=== PATIENT | female | born 1940 | race Caucasian/White ===

== ENCOUNTER 2020-05-05 14:54 | Inpatient (IN) | payer MEDICARE, SELFPAY ==
--- NOTE | ~2020-05-05 | US_ITS ---
EXAMINATION: US venous doppler LE EXAM DATE: 05/06/2020 12:41 INDICATION: bilateral leg edema. TECHNIQUE: Multiple grayscale, color flow and Doppler images of the lower extremity deep venous syste ms bilaterally were obtained and reviewed. There is no prior study for comparison. FINDINGS: Right side: The right common femoral, femoral and profunda veins demonstrate normal color flow, respi ratory variation, augmentation and compressibility. Compressibility, color flow confirmed within the right popliteal, posterior tibial, peroneal, and greater saphenous veins. Left side: The left common femoral, femoral and profunda veins demonstrate normal color flow, respira tory variation, augmentation and compressibility. Compressibility, color flow confirmed within the l eft popliteal, posterior tibial, peroneal, and greater saphenous veins. IMPRESSION: 1. No lower extremity deep venous thrombosis bilaterally. Reviewed, dictated and finalized at location A. OLOGY TECHNICIAN
--- NOTE | ~2020-05-05 | XR_ITS ---
EXAMINATION: XR forearm LT 2V EXAM DATE: 05/05/2020 15:57 INDICATION: fall, left forearm pain, bruising. TECHNIQUE: Left forearm frontal and lateral projections obtained and reviewed. There is no prior skip dy for comparison. FINDINGS: Distal radial hardware is intact. There are no acute fractures or dislocations identified. There is no subcutaneous gas. The soft tissue is unremarkable. Advanced carpometacarpal primary os teoarthritis. There is soft tissue swelling over the forearm. IMPRESSION: 1. XR forearm LT 2V exam without acute osseous findings. 2. Soft tissue swelling. Reviewed, dictated and finalized at location A. RENCE INVESTIGATOR
--- NOTE | ~2020-05-05 | XR_ITS ---
EXAMINATION: XR chest 1V portable EXAM DATE: 05/05/2020 15:56 INDICATION: Transient alteration of awareness. Fall. TECHNIQUE: Portable AP frontal chest x-ray was obtained. There is no prior study for comparison. FINDINGS: The lungs are clear. There are no pleural effusions. The cardiomediastinal silhouette is within normal limits. There is no pneumothorax suspected. There are bony degenerative changes. Prob able chronic bilateral rotator cuff tears. IMPRESSION: No acute cardiopulmonary findings. Reviewed, dictated and finalized at location A. KER BOSS
--- NOTE | ~2020-05-05 | MR_ITS ---
EXAMINATION: MR brain/brain stem wo con EXAM DATE: 05/06/2020 12:32 INDICATION: Confusion, abnormal brain CT (pituitary mass). TECHNIQUE: Magnetic resonance imaging (MRI) of the brain/brain stem obtained without contrast. Sagitt al T1, axial diffusion, gradient echo (T2*), T1, T2, FLAIR sequences obtained. Correlation is made t o head CT same day. FINDINGS: Again there is a complex cystic pituitary mass extending out of the sella turcica, mildly d isplacing the optic chiasm, dimensions unchanged at 2.2 x 1.5 x 1.3 cm. Differential diagnosis includ es pituitary adenoma and craniopharyngioma. Again there is an extra-axial lesion overlying the left frontal lobe toward the vertex measuring 1 cm in thickness by 2 cm in diameter, most likely a meningioma. There are no areas of restricted diffusi on to suggest acute infarction. There is no acute hemorrhage seen on the T2*, a hemosiderin sensitiv e sequence. There is mild to moderate periventricular and subcortical T2/FLAIR signal hyperintensity, nonspecific but probably related to small vessel ischemic disease (microangiopathy). There is mode rate prominence of the sulci and ventricles related to cerebral atrophy. There are no extra-axial c ollections. Flow voids are seen in the cerebral arteries on the T2-weighted sequences consistent wit h their expected patency. The orbits are unremarkable. Soft tissue is unremarkable. IMPRESSION: 1. No acute intracranial findings. 2. Pituitary complex cystic mass, most likely either a pituitary adenoma or craniopharyngioma. 3. Extra-axial frontal mass most likely meningioma. Reviewed, dictated and finalized at location A. CER OPERATOR IMPRESSION: 1. No acute intracranial findings. 2. Pituitary complex cystic mass, most likely either a pituitary adenoma or cr aniopharyngioma. 3. Extra-axial frontal mass most likely meningioma.
--- NOTE | ~2020-05-05 | CT_ITS ---
EXAMINATION: CT brain wo con, CT cervical spine wo con EXAM DATE: 05/05/2020 15:41 INDICATION: Fall, head injury. Altered mental status. TECHNIQUE: Spiral CT of the head was performed without contrast. Axial, coronal and sagittal images were reviewed. Spiral CT of the cervical spine was performed without contrast. Axial images were rev iewed. Coronal and sagittal reformatted images were also reviewed. The dose-length product (DLP) fo r this examination was 605.33 (accession [id number]), 151.00 (accession [id number]) mGy-cm. The exposure was tailored according to patient size, and iterative reconstruction (ASIR) was used as additional dose reduction technique. There is no prior study for comparison. FINDINGS: HEAD CT: There is an extra-axial mass overlying the left frontal lobe measuring 10 mm in thickness by 20 mm in diameter. No underlying bony reaction. This is most likely a meningioma. There is also a pituitary partially cystic mass without calcification extending out of the sella turc ica, touching the optic chiasm, with a pituitary gland measuring 2.2 x 1.5 x 1.3 cm, differential gurinder gnosis including pituitary adenoma, craniopharyngioma. There is no acute intraparenchymal hemorrhage. No evidence of intraparenchymal brain mass lesion. N o evidence of acute infarction. There is moderate periventricular and subcortical hypodensity, nonspe cific but probably related to small vessel ischemic disease. There is moderate prominence of the grewal lci and ventricles related to cerebral atrophy. There is intracranial carotid arteriosclerosis. T here is no mass effect or midline shift. There is no obstructive hydrocephalus suspected. There are no extra-axial collections. There are no acute calvarial fractures. The orbits are unremarkable. S oft tissue is unremarkable. The visualized sinuses and mastoid air cells are well aerated. CERVICAL CT: There is no evidence of acute cervical fracture. The odontoid process is intact. Pre- dens space is normal. Prevertebral soft tissue is normal. There are no soft tissue abnormalities id entified. There is no disc space widening or traumatic vertebral body subluxation suspected. Modera te to severe cervical spondylosis. A detailed level by level evaluation of spondylosis can be added as addendum if requested. IMPRESSION: 1. Mixed solid cystic pituitary mass, could be adenoma or craniopharyngioma. 2. Extra-axial mass overlying left frontal lobe most likely meningioma. 3. No acute intracranial findings or cervical fracture. 4. Atrophy, microangiopathy, cervical spondylosis. Reviewed, dictated and finalized at location A. AL INSURANCE COORDINATOR IMPRESSION: 1. Mixed solid cystic pituitary mass, could be adenoma or craniopharyngioma. 2. Extra-axial mass overlying left frontal lobe most likely meningioma. 3. No acute intracranial findings or cervical fracture. 4. Atrophy, microangiopathy, cervical spondylosis.
[2020-05-05 14:57] VITALS: BP 157/81; PULSE 86; RESP 18; TEMP 36.5; O2SAT 96
--- NOTE | 2020-05-05 15:12 | ECG_ITS ---
Measurements Intervals [place] Rate: 101 P: 77 TN: 176 QRS: 26 QRSD: 98 T: 114 QT: 364 QTc: 472 Interpretive Statements SINUS TACHYCARDIA BORDERLINE ST-T WAVE ABNORMALITY- HIGH LATERAL LEADS BASELINE ARTIFACT- I, II, III, AVR, AVL, AVF, V1-V3 BORDERLINE ECG Electronically Signed On 05-06-2020 11:28:06 [employer] [employer] by Nestor Hernandez D.O.
--- NOTE | 2020-05-05 15:16 | ED.GENADULT ---
HPI - General Adult General Chief complaint: Fall Stated complaint: Found on ground - unknown downtime Time Seen by Provider: 05/05/20 15:01 Source: patient History of Present Illness HPI narrative: Patient is 80 y/o female brought in by EMS because she was found on the ground by her niece today. Niece talked to her on the phone yesterday. Patient does not know how she fell. She is a poor historian. She has some left arm pain. She denies any headache, neck pain, chest pain or abdominal pain. Niece states that patient is more confused than usual. Related Data Home Medications Medication Instructions Recorded Confirmed ibuprofen 800 mg PO TID PRN 05/05/20 05/05/20 lisinopril 20 mg PO DAILY 05/05/20 05/05/20 metolazone 2.5 mg PO DAILY 05/05/20 05/05/20 potassium chloride 20 meq PO DAILY 05/05/20 05/05/20 Allergies Allergy/AdvReac Type Severity Reaction Status Date / Time No Known Allergies Allergy Verified 05/06/20 01:04 Review of Systems Constitutional: Constitutional: Denies chills, Denies fever(s), Denies headache(s) and Denies weakness Eyes: Eyes: Denies blurry vision ENT: Denies headache(s) and Denies neck pain Cardiovascular: Cardiovascular: Denies chest pain and Denies dyspnea Respiratory: Respiratory: Denies cough and Denies dyspnea Gastrointestinal: Gastrointestinal: Denies abdominal pain, Denies diarrhea, Denies nausea and Denies vomiting Genitourinary: Genitourinary: Denies hematuria and Denies dysuria Musculoskeletal: Musculoskeletal: Reports as per HPI, Denies back pain, Denies neck pain and Reports other (left arm pain) Neurologic: Denies headache(s) and Denies weakness [facility] Past Medical History Medical History (Updated 05/06/20 @ 07:23 by Mago Ley MD) Hypertension Surgical History Surgical History History of hip surgery ORIF right hip fracture Family History Family History Other Hypertension Social History Social History (Updated 05/05/20 @ 21:36 by Suzette Yuan PA-C) Social History: Surrogate decision maker: Savanna Nuno, niece. She does not have a power of commercial attorney. Code status: Full code. Smoking status: Never smoker Second hand tobacco smoke exposure: No Alcohol intake: never Substance use: never Substance use type: does not use Additional living arrangements comments: Resides in her own home in [place]. She has no children. 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 Gender identity (if verbalized by the patient): Female Sexual Orientation (if Verbalized by the Patient): Straight or Heterosexual Spiritual care concerns: No Exam Const: General: no acute distress and well developed Orientation/consciousness: oriented to person and confusion HENMT: Head: normocephalic Ears: external ears normal General nose exam: Normal external nose present Eyes: General: appearance normal, both eyes and all related structures Conjunctivae: conjunctivae normal Neck: Neck: normal visual inspection and full ROM Chest: Chest palpation & inspection: normal inspection of the chest and no tenderness Resp: Effort & Inspection: normal respiratory effort Auscultation: clear to auscultation bilaterally Cardio: Rate: regular rate Rhythm: regular rhythm GI: GI Palp: No abdominal tenderness and Yes Soft to palpation Skin: General skin exam: normal color and turgor normal Trauma: other (skin tear left forearm) Neuro: General: oriented to person and confusion Cognition (Neuro): normal cognition Extrem: General: normal to inspection, full ROM and no pedal edema Left upper extremity: elbow/forearm tenderness and swelling Psych: Appearance: grossly normal Mental Status: mental status grossly normal Affect: normal affect Course Vital Signs Vital signs: Vital Signs Temperature 36.5 C 11/
[2020-05-05 16:19] LABS: Add Urine Microscopic? YES; Appearance Urine Cloudy (Clear); Bacteria Urine Trace /hpf; Bilirubin Urine Negative (Negative); Blood Urine 2+ (Negative); Color Urine Yellow (Yellow); Glucose Urine UA Negative (Negative); Ketones Urine Trace mg/dL (Negative); Leukocyte Esterase Ur Negative LEU/UL (Negative); Mucus Urine Few /lpf; Nitrate Urine Negative (Negative); Protein Urine 1+ mg/dL (Negative); Specific Grav Ur 1.017 (1.001-1.035); Squamous Epithelial Cell Urine Occasional /hpf (Few); Urobilinogen Urine Negative mg/dL (<2.0); WBC Urine 0-3 /hpf
[2020-05-05 16:59] LABS: Basophils Percent Auto 0.2 % (0.2-1.2); Hematocrit 30.7 % (37.0-47.0); Hemoglobin 10.3 g/dL (12.0-15.0); Immature Granulocyte Absolute 0.03 K/mm3 (0.00-0.031); Immature Granulocyte Percent A 0.3 % (0-0.5); Lymphocytes Absolute Auto 0.49 K/mm3 (0.9-3.2); Lymphocytes Percent Auto 4.9 % (18.3-44.2); Mean Corpuscular HGB Conc 33.6 g/dl (32-36); Mean Corpuscular Hemoglobin 30.4 pg (26-34); Mean Corpuscular Volume 90.6 fl (80-100); Mean Platelet Volume 10.6 fl (7.4-10.4); Monocytes Absolute Auto 0.8 K/mm3 (0.1-0.6); Monocytes Percent Auto 8.2 % (2.6-8.5); Neutrophils Absolute Auto 8.7 K/mm3 (1.3-6.7); Neutrophils Percent Auto 86.4 % (45.5-73.1); Platelet Count Result 246 k/mm3 (150-375); Red Blood Count 3.39 M/mm3 (4.2-5.4); Red Cell Distribution Width 14.5 % (11.5-14.5); White Blood Count 10.1 K/mm3 (4.5-10.0)
[2020-05-05] MEDS: TETANUS,DIPHTHERIA,AC PERTUSSIS ADULT (0.5 ML) BOOSTRIX IM (16:59)
[2020-05-05 17:05] VITALS: BP 132/52; PULSE 104; RESP 15; O2SAT 100
[2020-05-05 17:09] LABS: Prothrombin Time 13.6 Seconds (11.1-14.7)
[2020-05-05 17:14] LABS: Alanine Aminotransferase 27 U/L (4-35); Albumin Level 3.9 g/dL (3.5-5.1); Alkaline Phosphatase 73 U/L (38-126); Anion Gap 10 mmol/L (8-16); Aspartate Amino Transferase 76 U/L (14-36); Bilirubin,Total 0.7 mg/dL (0.2-1.3); Blood Urea Nitrogen 56 mg/dL (7-17); Calcium 9.6 mg/dL (8.4-10.2); Carbon Dioxide 23 mmol/L (22-30); Chloride 104 mmol/L (98-107); Estimated CRCL calculation 24 ml/min; Estimated Glomerular Filt Rate 36; Glucose 109 mg/dL (65-105); Potassium 4.5 mmol/L (3.4-5.0); Sodium 137 mmol/L (137-145)
[2020-05-05 18:01] LABS: Creatine Kinase 2092 U/L (30-135)
[2020-05-05 18:20] VITALS: BP 123/53; PULSE 104; RESP 18; O2SAT 100
[2020-05-05] MEDS: SODIUM CHLORIDE 0.9% IV 1,000 ML 999 ML IV CONT (18:20)
--- NOTE | 2020-05-05 20:00 | PM.IMHP ---
H&P: HPI History of Present Illness Date/Time: 05/05/20 20:00 Chief complaint: Found on ground. Narrative: Izabela Moreno is an 80-year-old female with probable underlying dementia and hypertension who presented to the emergency department earlier this afternoon via EMS from home for evaluation after she was found lying down in her hallway not long prior to arrival. It is noted that she last spoke with family members yesterday afternoon between 14:00 and 16:00 and seemed her typical self at that time. At this time she is not a great historian and seems to confabulate quite a bit, and as such a majority of this history is obtained via a review of her electronic medical records as well as discussions with her niece, Savanna at bedside, with the patient's permission. The patient lives in her own home and is independent of all ADLs, and in fact she still drives. Savanna reports that her aunt does show some evidence of memory loss on occasion, but nothing too significant and certainly not anything like today. According to Savanna, the patient phoned another family member this afternoon and informed them that she was lying in the hallway and was unable to get up. The patient was found lying on her left side in the hallway, soiled with urine and stool. There was evidence of old blood throughout the house, in 2 different bedrooms, the bathroom, living room, and in the hallway. It was then noted that the patient had a large skin tear on her left forearm which at the time she stated she did not recall how it was obtained, but she goes on to tell me that she cut it on and a concrete porch after falling yesterday. She does not recall how she got on to the floor in the hallway, and cannot say whether not she fell. She has no complaints at the time my evaluation and specifically denies headache, vertigo, focal weakness, paresthesias, cold and flu symptoms, fever, chills, sweats, chest pain, shortness of breath, nausea, vomiting, diarrhea, and dysuria. Review of Systems Review of Systems: Narrative: Twelve systems were reviewed with pertinent positives and negatives as per HPI. I am not certain as to how accurate these are as she seems to confabulate quite a bit. She frequently has lower extremity edema and in fact was started on metolazone for such. She has fallen out of the habit of putting on her compression stockings each day. Except as documented in HPI, all other systems were reviewed and were reportedly negative. [facility] Past Medical History Medical History (Updated 05/05/20 @ 21:47 by Suzette Yuan PA-C) Hypertension Surgical History Surgical History (Updated 05/05/20 @ 21:36 by Suzette Yuan PA-C) History of hip surgery ORIF right hip fracture Family History Family History (Updated 05/05/20 @ 21:36 by Suzette Yuan PA-C) Other Hypertension Social History Social History (Updated 05/05/20 @ 21:36 by Suzette Yuan PA-C) Social History: Surrogate decision maker: cheikh Li. She does not have a power of securities attorney. Code status: Full code. Smoking status: Never smoker Alcohol intake: never Substance use: never Additional living arrangements comments: Resides in her own home in [place]. She has no children. 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 Gender identity (if verbalized by the patient): Female Sexual Orientation (if Verbalized by the Patient): Straight or Heterosexual Meds Home Medications and Allergies Home Medications Medication Instructions Recorded Confirmed Type ibuprofen 800 mg PO TID PRN 05/05/20 05/05/20 History lisinopril 20 mg PO DAILY 05/05/20 05/05/20 History metolazone 2.5 mg PO DAILY 05/05/20 05/05/20 History potassium chloride 20 meq PO DAILY 05/05/20 05/05/20 History Allergies Allergy/AdvReac Type Severity Reaction Status Date / Time No Known Allergies Allergy Verified 05/05/20 15:26 Vital Signs Vital Signs -
[2020-05-05 22:30] VITALS: BP 120/43; PULSE 103; RESP 18; TEMP 37; O2SAT 96
[2020-05-05 22:45] VITALS: PULSE 95
[2020-05-05 23:23] LABS: Creatine Kinase 2679 U/L (30-135)
[2020-05-06] VITALS (10 sets, daily range): BP systolic 111–127; BP diastolic 42–61; PULSE 74–104; RESP 18–20; TEMP 36.3–37; O2SAT 96–100; BMI 26.6
[2020-05-06 00:30] LABS: Folic Acid > 20.0 ng/mL (2.76->20)
--- NOTE | 2020-05-06 00:40 | PC.NURSE ---
DR SNELL MAKING ROUNDS. MADE AWARE OF ELEVATION OF CK ON REPEAT LABS.
--- NOTE | 2020-05-06 02:29 | ADMGEN ---
05/05/2020 @2230 This patient, Izabela Moreno, was admitted to [facility] Surg Room 305-02. Patient/family oriented to hospital policies and general routines including ID bracelet, bed and alarms, visiting hours, pain management, procedures, bathroom and other care routines, personal items, smoking policy, room service/diet, and visiting hours. Information on how to activate the Rapid Response Team has been discussed. Patient/Family are encouraged to report perceived risks to care and to ask questions if they do not understand what they are told or what they should do.
[2020-05-06 02:31] LABS: Iron 15 ug/dL (37-170)
[2020-05-06] MEDS: SODIUM CHLORIDE 0.9% IV 1,000 ML 75 ML IV CONT (02:34)
[2020-05-06 02:41] LABS: Percent Iron Saturation 5 % (20-50)
--- NOTE | 2020-05-06 03:52 | PC.NURSE ---
0330 REPORT CALLED TO MEL PETERSEN IN THE [facility]. PT TRANSFERRED VIA BED.
--- NOTE | 2020-05-06 04:00 | PC.NURSE ---
Pt. arrives to [facility] from room 305. Report received from NICOLA Villagomez. Vital signs taken at this time, noted to be stable. Pt. appears to be in no apparent distress. Pt. denies pain at this time. Pt. repositioned in bed. Call light within reach and bed alarm set. Will continue to monitor pt.
[2020-05-06 08:13] LABS: Basophils Percent Auto 0.1 % (0.2-1.2); Eosinophils Percent Auto 0.4 % (0-4.4); Hematocrit 28.3 % (37.0-47.0); Hemoglobin 9.3 g/dL (12.0-15.0); Immature Granulocyte Absolute 0.02 K/mm3 (0.00-0.031); Immature Granulocyte Percent A 0.3 % (0-0.5); Lymphocytes Absolute Auto 0.67 K/mm3 (0.9-3.2); Lymphocytes Percent Auto 9.4 % (18.3-44.2); Mean Corpuscular HGB Conc 32.9 g/dl (32-36); Mean Corpuscular Hemoglobin 30.1 pg (26-34); Mean Corpuscular Volume 91.6 fl (80-100); Mean Platelet Volume 10.5 fl (7.4-10.4); Monocytes Absolute Auto 0.6 K/mm3 (0.1-0.6); Monocytes Percent Auto 8.9 % (2.6-8.5); Neutrophils Absolute Auto 5.8 K/mm3 (1.3-6.7); Neutrophils Percent Auto 80.9 % (45.5-73.1); Platelet Count Result 207 k/mm3 (150-375); Red Blood Count 3.09 M/mm3 (4.2-5.4); Red Cell Distribution Width 15.1 % (11.5-14.5); White Blood Count 7.1 K/mm3 (4.5-10.0)
[2020-05-06 08:22] LABS: Alanine Aminotransferase 31 U/L (4-35); Albumin Level 3.1 g/dL (3.5-5.1); Alkaline Phosphatase 58 U/L (38-126); Anion Gap 5 mmol/L (8-16); Aspartate Amino Transferase 85 U/L (14-36); Bilirubin,Total 0.6 mg/dL (0.2-1.3); Blood Urea Nitrogen 41 mg/dL (7-17); Calcium 8.6 mg/dL (8.4-10.2); Carbon Dioxide 26 mmol/L (22-30); Chloride 108 mmol/L (98-107); Estimated CRCL calculation 33 ml/min; Estimated Glomerular Filt Rate 53; Glucose 91 mg/dL (65-105); Magnesium 2.1 mg/dL (1.6-2.3); Potassium 3.8 mmol/L (3.4-5.0); Sodium 139 mmol/L (137-145)
[2020-05-06 08:28] LABS: Creatine Kinase 2762 U/L (30-135)
--- NOTE | 2020-05-06 10:09 | PM.IMPN ---
Progress Note: A&P Assessment and Plan (1) Acute kidney injury: Code(s): N17.9 - Acute kidney failure, unspecified Status: Acute Assessment and Plan: IMPROVING Creatinine improved from 1.4 to 1.0 BUN from 56 to 41 GRF from 36 to 53 continue to encourage oral hydration avoid nephrotoxic medications and CT dye if possible. maintain MAPs>65 (2) Rhabdomyolysis: Qualifiers: Encounter type: initial encounter Rhabdomyolysis type: traumatic Qualified Code(s): T79.6XXA - Traumatic ischemia of muscle, initial encounter Code(s): M62.82 - Rhabdomyolysis Status: Acute Assessment and Plan: potassium 3.8 continuous telemetry monitoring creatinine 1.0 LFTs : AST and ALk Phos are normal AST 76 to 85, (mildly elevated)likely to improve with time and hydration Total CK 2092 to 2679 to 2762 this morning. continue to encourage oral hydration limited IV hydration as she already had lower extremity generalized swelling (3) Confusion: Code(s): R41.0 - Disorientation, unspecified Status: Acute Assessment and Plan: lives at home alone, fall alone, no home medications that lend to AMS or fall Neuro checks Q 4 hours PT/OT evaluation, checking orthostatic VS Fall precautions placed. TSH 1.3 WBC improved from 10 to 7 UA clear no evidence of head trauma and she gives no history to suggest underlying infection. Mental status Remains altered - pleasantly confused, thought it was [place] and wrong town/city/hospital Brain MRI, ECHO, and lower extremity US - remain pending Consulted Neurologist see below Abnormal Brain CT plan (4) Contusion: Code(s): T14.8XXA - Other injury of unspecified body region, initial encounter Status: Acute Assessment and Plan: palpable hematoma noted to superior of left mid arm Wound nurse consulted at admission Skin laceration left forearm surrounded by significant bruising and swelling; now hematoma extending down arm to wrist from wound. Pulse present, elevating arm, xray of arm with soft tissue swelling but no fracture noted consulted Gen. Surgery. wrapped and elevated monitor H/H, hemoglobin>9.3 and 28.3 needs monitoring for infection prevention and further bleeding/injury (5) Abnormal brain CT: Code(s): R90.89 - Other abnormal findings on diagnostic imaging of central nervous system Status: Acute Assessment and Plan: HEAD CT: There is an extra-axial mass overlying the left frontal lobe measuring 10 mm in thickness by 20 mm in diameter. No underlying bony reaction. This is most likely a meningioma. There is also a pituitary partially cystic mass without calcification extending out of the sella turcica, touching the optic chiasm, with a pituitary gland measuring 2.2 x 1.5 x 1.3 cm, differential diagnosis including pituitary adenoma, craniopharyngioma. There is no acute intraparenchymal hemorrhage. No evidence of intraparenchymal brain mass lesion. No evidence of acute infarction. There is moderate periventricular and subcortical hypodensity, nonspecific but probably related to small vessel ischemic disease. There is moderate prominence of the sulci and ventricles related to cerebral atrophy. There is intracranial carotid arteriosclerosis. There is no mass effect or midline shift. There is no obstructive hydrocephalus suspected. There are no extra-axial collections. There are no acute calvarial fractures. The orbits are unremarkable. Soft tissue is unremarkable. The visualized sinuses and mastoid air cells are well aerated. CERVICAL CT: There is no evidence of acute cervical fracture. The odontoid process is intact. Pre-dens space is normal. Prevertebral soft tissue is normal. There are no soft tissue abnormalities identified. There is no disc space widening or traumatic vertebral body subluxation suspected. Moderate to severe cervical spondylosis. A detailed level by level evaluation of spondylosis can be add
[2020-05-06] MEDS: LIDO 1%/EPINEPHRINE 1:100,000 20 ML VIAL INFILTRATE (15:00)
--- NOTE | 2020-05-06 15:52 | PM.CNGS ---
Assessment and Plan Assessment and plan (1) Skin tear: Status: Acute Assessment and Plan: Patient has a wide skin tear measuring 8 cm x 7 cm on her left forearm. Repair of the laceration will help keep the skin from peeling back or eventually becoming necrotic. We will clean the wound and explore the wound carefully. She has a hematoma deep to this, but this does not appear to be causing compartment syndrome or any other problems at this time. It will certainly have to be watched for increasing size or any signs infection. Continued daily wound care with Mepitel dressing seems appropriate. Will continue to follow along with patient. (2) Acute kidney injury: Code(s): N17.9 - Acute kidney failure, unspecified Status: Acute (3) Rhabdomyolysis: Qualifiers: Encounter type: initial encounter Rhabdomyolysis type: traumatic Qualified Code(s): T79.6XXA - Traumatic ischemia of muscle, initial encounter Code(s): M62.82 - Rhabdomyolysis Status: Acute (4) Altered mental status: Qualifiers: Altered mental status type: unspecified Qualified Code(s): R41.82 - Altered mental status, unspecified Code(s): R41.82 - Altered mental status, unspecified Status: Acute History of Present Illness Consult details Consult date: 05/06/20 Reason for consult: wound care Requesting physician: Julissa Zhang NP Narrative: This is an 80-year-old woman who I am asked to see for a large skin tear hematoma her left forearm. She has a report of a fall and was found on the ground couple days ago. She was admitted for rhabdomyolysis. She does not have much recollection of the events leading up to this. She has no sign of infection of the left arm wound but has significant amount of swelling and bruising in the area. Review of Systems Review of Systems: All systems reviewed & are unremarkable except as noted in HPI and below Constitutional: Constitutional: Denies chills and Denies fever(s) Eyes: Eyes: Denies change in vision ENT: Denies hearing loss, Denies neck pain and Denies sore throat Cardiovascular: Cardiovascular: Denies chest pain and Denies dyspnea Respiratory: Respiratory: Denies cough, Denies dyspnea and Denies wheezing Gastrointestinal: Gastrointestinal: Denies abdominal pain, Denies nausea and Denies vomiting Genitourinary: Genitourinary: Denies hematuria and Denies dysuria Musculoskeletal: Musculoskeletal: Denies arthralgias, Denies joint swelling and Denies neck pain Integumentary/Breasts: Skin/Breast: Reports as per HPI Allergic/Immunologic: Allergic/Immunologic: Denies wheezing PMFSH Past Medical History Medical History Hypertension Surgical History Surgical History History of hip surgery ORIF right hip fracture Family History Family History Other Hypertension Social History Social History Social History: Surrogate decision maker: cheikh Li. She does not have a power of attorney law clerk. Code status: Full code. Smoking status: Never smoker Second hand tobacco smoke exposure: No Alcohol intake: never Substance use: never Substance use type: does not use Additional living arrangements comments: Resides in her own home in [place]. She has no children. 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 Gender identity (if verbalized by the patient): Female Sexual Orientation (if Verbalized by the Patient): Straight or Heterosexual Spiritual care concerns: No Meds Home Medications and Allergies Home Medications Medication Instructions Recorded Confirmed Type ibuprofen 800 mg PO TID PRN 05/05/20 05/05/20 History lisinopril 20 mg PO DAILY 05/05/20
--- NOTE | 2020-05-06 16:49 | P.OP_ITS ---
Procedure Note - Detailed Date of procedure: 05/06/20 Pre-op diagnosis: Left forearm laceration, left forearm hematoma Post-op diagnosis: same Procedure performed: 1. Wound exploration and evacuation of left forearm hematoma 2. Simple repair of left forearm laceration measuring 15cm Description of procedure: * Procedure as well as risks, benefits, and alternatives were discussed with the patient. Written consent was obtained and placed in chart prior to procedure. Patient was placed supine in hospital bed. Her left forearm was prepped and draped in sterile fashion using Betadine prep. 1% lidocaine with epinephrine was infiltrated locally around the laceration and open wound. The wound was then carefully explored and hematoma was evacuated. The wound was irrigated with sterile saline and I ensured that most of the hematoma was adequately evacuated. The wound bed all appeared healthy with viable skin. The total length of the laceration was about 15 cm. The skin edges were then reapproximated using 4 0 nylon simple interrupted sutures. The skin appeared well approximated. Mepitel dressing was then applied followed by 4 x 4 gauze and Kerlix wrap. Anesthesia: local ( 1% lidocaine with epinephrine) Surgeon: Keron Florence DO Estimated blood loss (mL): 5 Drains: No Packing: No Complications: No immediate complications Condition: stable Disposition: floor
--- NOTE | 2020-05-06 21:50 | ECHO_ITS ---
Patient Info Name: Izabela Moreno Age: 80 years : 1940 Gender: Female Ht: 60 in Wt: 141 lbs BSA: 1.67 m2 HR: 92 bpm BP: 127 / 58 mmHg Heart Rhythm: Sinus Rhythm Technical Quality: Good Exam Date: 05/06/2020 8:20 AM Exam Location: [facility] Patient Status: Outpatient Admit Date: 05/05/2020 Staff Ordering Physician: Suzette Yuan PA-C Pressure Steamer Tender: Analy Berrios RDCS Attending Provider: Julissa Zhang NP Referring Physician: Kwabena VIERA; Exam Type: CA echo doppler color flow Study Info Indications R01.1 - Cardiac murmur, unspecified I10 - Essential (primary) hypertension Complete two-dimensional, color flow and Doppler transthoracic echocardiogram is performed. Summary 1. Complete two-dimensional, color flow and Doppler transthoracic echocardiogram is performed. 2. There is mild concentric increased left ventricular wall thickness. 3. Left ventricular systolic function is normal, estimated at 60-65%. 4. The left ventricular diastolic function is grade I diastolic dysfunction. 5. Left atrial chamber dimension is moderately enlarged. 6. There is moderate aortic valve sclerosis. 7. There is trace aortic valve regurgitation. 8. Direct planimetry and Doppler healed valve area of 1.4-1.5 cm squared. Left Ventricle Left ventricular chamber dimension is normal. Left ventricular systolic function is normal, estimated at 60-65%. There is mild concentric increased left ventricular wall thickness. The left ventricular diastolic function is grade I diastolic dysfunction. Right Ventricle Right ventricular chamber dimension is normal. Left Atria Left atrial chamber dimension is moderately enlarged. Right Atria Right atrial chamber dimension is normal. Aortic Valve The aortic valve is trileaflet. There is moderate aortic valve sclerosis. There is trace aortic valve regurgitation. Direct planimetry and Doppler healed valve area of 1.4-1.5 cm squared. Pulmonic Valve The pulmonic valve is not well visualized. Mitral Valve The mitral valve has normal leaflets. There is trace mitral valve regurgitation. Tricuspid Valve The tricuspid valve leaflets are normal. Pericardium/Pleural The pericardium appears normal. Left Ventricular Outflow Tract Name Value Normal LVOT 2D LVOT Diameter 2.0 cm LVOT Doppler LVOT Peak Velocity 231 cm/s LVOT Peak Gradient 18 mmHg LVOT Mean Gradient 9 mmHg LVOT VTI 40 cm LVOT VTI/AV VTI Ratio 0.6 LVOT Stroke Volume 129 ml LVOT CO 12.9 l/min LVOT CI 7.7 l/min/m2 Pulmonic Valve Name Value Normal RVOT Doppler RVOT Peak Gradient 2 mmHg
[2020-05-07] VITALS (10 sets, daily range): BP systolic 119–124; BP diastolic 50–71; PULSE 79–115; RESP 16–21; TEMP 36.1–37; O2SAT 96–100
[2020-05-07 06:29] LABS: Hematocrit 27.7 % (37.0-47.0); Hemoglobin 9.2 g/dL (12.0-15.0); Mean Corpuscular HGB Conc 33.2 g/dl (32-36); Mean Corpuscular Hemoglobin 30.1 pg (26-34); Mean Corpuscular Volume 90.5 fl (80-100); Mean Platelet Volume 10.7 fl (7.4-10.4); Platelet Count Result 205 k/mm3 (150-375); Red Blood Count 3.06 M/mm3 (4.2-5.4); Red Cell Distribution Width 14.9 % (11.5-14.5); White Blood Count 8.2 K/mm3 (4.5-10.0)
[2020-05-07 06:48] LABS: Alanine Aminotransferase 35 U/L (4-35); Albumin Level 3.2 g/dL (3.5-5.1); Alkaline Phosphatase 62 U/L (38-126); Anion Gap 4 mmol/L (8-16); Aspartate Amino Transferase 80 U/L (14-36); Bilirubin,Total 0.5 mg/dL (0.2-1.3); Blood Urea Nitrogen 35 mg/dL (7-17); Calcium 8.6 mg/dL (8.4-10.2); Carbon Dioxide 27 mmol/L (22-30); Chloride 107 mmol/L (98-107); Creatine Kinase 1554 U/L (30-135); Estimated CRCL calculation 36 ml/min; Estimated Glomerular Filt Rate 60; Glucose 100 mg/dL (65-105); Lactate Dehydrogenase 1024 U/L (313-618); Potassium 3.6 mmol/L (3.4-5.0); Sodium 138 mmol/L (137-145)
[2020-05-07] MEDS: SODIUM CHLORIDE 0.9% IV 1,000 ML 75 ML IV CONT ×2 (08:47→10:20)
--- NOTE | 2020-05-07 14:55 | PM.IMPN ---
Progress Note: A&P Assessment and Plan (1) Acute kidney injury: Code(s): N17.9 - Acute kidney failure, unspecified Status: Acute Assessment and Plan: Appears to be resolved with Cr 0.90 today; 1.40 on arrival. Possibly due to volume depletion from dehydration vs injury due to rhabdomyolysis from recently being found down. Will d/c IV fluids Encourage oral hydration avoid nephrotoxic medications Monitor daily BMP (2) Rhabdomyolysis: Qualifiers: Encounter type: initial encounter Rhabdomyolysis type: traumatic Qualified Code(s): T79.6XXA - Traumatic ischemia of muscle, initial encounter Code(s): M62.82 - Rhabdomyolysis Status: Acute Assessment and Plan: CK 1554 today; improved. CHANCE also improved with IV fluids continue to encourage oral hydration Monitor CK tomorrow (3) Confusion: Code(s): R41.0 - Disorientation, unspecified Status: Acute Assessment and Plan: Appears to overall improved. Patient lives at home alone, with unclear baseline, although niece notes she has had issues with short term memory loss these past several months. TSH WNL. Leukocytosis resolved. NO clear evidence of underlying infection. MRI brain negative for acute intracranial findings. Neuro checks Q 4 hours PT/OT evaluation Fall precautions placed. WBC improved from 10 to 7 Neuro consulted and appreciate input. (4) Contusion: Code(s): T14.8XXA - Other injury of unspecified body region, initial encounter Status: Acute Assessment and Plan: palpable hematoma noted to superior of left mid arm earlier in stay; Dr. Florence consulted and performed bedside wound exploration and evacuation of left forearm hematoma and simple repair of left forearm laceration measuring 15cm on 05/06. Wound nurse consulted at admission wrapped and elevated monitor H/H needs monitoring for infection prevention and further bleeding/injury; will likely need Wound RN HH at discharge if patient willing (5) Abnormal brain CT: Code(s): R90.89 - Other abnormal findings on diagnostic imaging of central nervous system Status: Acute Assessment and Plan: Pituitary mass noted on CT imaging of brain at arrival and confirmed with brain MRI, as well as extra-axial mass overlying the left frontal lobe most likely a meningioma. Neuro consulted and appreciate recommendations Attempted to contact Dr. Zarate's office for more information to see if this is a new finding; will attempt again tomorrow This will need to be followed by PCP at the very least. We had a long discussion both with patient and with niece, with patient's permission. Given her age, and possible underlying dementia, she would likely be a poor candidate, but I encouraged her to discuss further options, including serial imaging vs possible neurosurgery referral should she and her family decide to proceed with further evaluation. Both niece and patient agreeable with plan for the time being. Will await further input from Neurology Monitor Subjective Date/time seen: 05/07/20 14:55 Interval history: Patient is an 80-year-old female with probable underlying dementia and hypertension who is seen in follow up for CHANCE and rhabdomyolysis after being found down at home. Patient is A&Ox4 for me today, but is forgetful about some topics discussed during our visit and appears to have short term memory issues. She tells me she feels okay. No complaints. She does bring up her pituitary mass with me, spontaneously; we discuss this in detail, however she seemingly forgets we discussed this topic and inquires about this again. Given this, she not the best historian; at any rate, she denies any subjective f/c/s, headaches, dizziness, lighthead
--- NOTE | 2020-05-07 17:46 | PC.NURSE ---
1730-pt report given to NICOLA Solorio. No distress noted or verbalized at time of transfer.
--- NOTE | 2020-05-07 17:57 | PC.NURSE ---
Pt received from [facility] pt relaxing comfortably.
[2020-05-08] VITALS (10 sets, daily range): BP systolic 126–131; BP diastolic 53–62; PULSE 80–91; RESP 16–18; TEMP 36.2–36.9; O2SAT 96–100
[2020-05-08 06:06] LABS: Basophils Percent Auto 0.2 % (0.2-1.2); Eosinophils Absolute Auto 0.2 K/mm3 (0-0.3); Eosinophils Percent Auto 3.7 % (0-4.4); Hematocrit 22.8 % (37.0-47.0); Hemoglobin 7.5 g/dL (12.0-15.0); Immature Granulocyte Absolute 0.02 K/mm3 (0.00-0.031); Immature Granulocyte Percent A 0.3 % (0-0.5); Lymphocytes Percent Auto 17.5 % (18.3-44.2); Mean Corpuscular HGB Conc 32.9 g/dl (32-36); Mean Corpuscular Hemoglobin 29.5 pg (26-34); Mean Corpuscular Volume 89.8 fl (80-100); Monocytes Absolute Auto 0.6 K/mm3 (0.1-0.6); Monocytes Percent Auto 9.2 % (2.6-8.5); Neutrophils Absolute Auto 4.4 K/mm3 (1.3-6.7); Neutrophils Percent Auto 69.1 % (45.5-73.1); Platelet Count Result 198 k/mm3 (150-375); Red Blood Count 2.54 M/mm3 (4.2-5.4); Red Cell Distribution Width 14.9 % (11.5-14.5); White Blood Count 6.3 K/mm3 (4.5-10.0)
[2020-05-08 06:15] LABS: Alanine Aminotransferase 35 U/L (4-35); Albumin Level 2.8 g/dL (3.5-5.1); Alkaline Phosphatase 53 U/L (38-126); Anion Gap 3 mmol/L (8-16); Aspartate Amino Transferase 64 U/L (14-36); Bilirubin,Total 0.5 mg/dL (0.2-1.3); Blood Urea Nitrogen 31 mg/dL (7-17); Calcium 8.2 mg/dL (8.4-10.2); Carbon Dioxide 29 mmol/L (22-30); Chloride 106 mmol/L (98-107); Creatine Kinase 1154 U/L (30-135); Estimated CRCL calculation 41 ml/min; Estimated Glomerular Filt Rate > 60; Glucose 92 mg/dL (65-105); Magnesium 1.9 mg/dL (1.6-2.3); Potassium 3.5 mmol/L (3.4-5.0); Sodium 138 mmol/L (137-145)
[2020-05-08] MEDS: POTASSIUM CHLORIDE 20 MEQ PACKET (FOR LIQUID) PO (09:18)
[2020-05-08] MEDS: lisinopriL 20 MG TABLET PO (09:18)
[2020-05-08] MEDS: metOLazone 2.5 MG TABLET PO (09:18)
--- NOTE | 2020-05-08 11:57 | WPDNEURCNPN ---
Assessment and Plan Assessment and plan (1) Altered mental status: Qualifiers: Altered mental status type: unspecified Qualified Code(s): R41.82 - Altered mental status, unspecified Code(s): R41.82 - Altered mental status, unspecified Status: Acute (2) Pituitary adenoma: Code(s): D35.2 - Benign neoplasm of pituitary gland Status: Acute Additional Plan complex cystic mass of the pituitary gland raising the possibility of adenoma versus craniopharyngioma with the possibility the visual field cut patient will benefit to neurosurgical intervention after the ophthalmological evaluation will discuss with the family and consider transfer or else outpatient admission Consult date: 05/08/20 Time Seen: 11:45 HPI: Izabela Moreno is a 80 year old female admitted to the hospital with the information that she was found on ground. Patient has underlying history of hypertension and possibly dementia as per the information available she last spoke with family members day before between 14 101,600 and seemed her typical self at that time the patient lives in her own home and is independent of all ADLs infectious still drives reportedly patient phone and other family member and inform that she was lying in the hard way and was unable to get up there was evidence of old blood throughout the house into different bedrooms she was found to have a large skin tear on her left forearm though she was unable to recall how it was obtained. She has ongoing history of hypertension and hip surgery in the past on the right side also her surrogate decision maker is her niece. Evaluation up until now includes echocardiogram with 60 to 65% left ventricular systolic function moderate aortic valve sclerosis trace aortic valve regurgitation left ventricle normal but the left atrium is moderately enlarged right ventricle normal and aortic valve shows sclerosis with trace regurgitation brain MRI with no stroke but complex cystic mass a pituitary gland raising the possibility of pituitary adenoma a craniopharyngioma, Doppler studies of the veins normal forearm x-rays negative psoas the cervical spine CT scan and a CT scan of the head document the same pituitary tumor routine lab shows WBC 6.3 hemoglobin 7.5 normal platelet count electrolytes normal with BUN 31 calcium 8.0 AST 64 and CK of 1150 for now but it was 2679 at the time of admission folates more than 20 and albumin only 2.8 Review of Systems Review of Systems: All systems reviewed & are unremarkable except as noted in HPI and below PMFSH Past Medical History Medical History Hypertension Surgical History Surgical History History of hip surgery ORIF right hip fracture Family History Family History Other Hypertension Social History Social History Social History: Surrogate decision maker: Savanna Nuno niece. She does not have a power of timber spotter. Code status: Full code. Smoking status: Never smoker Second hand tobacco smoke exposure: No Alcohol intake: never Substance use: never Substance use type: does not use Additional living arrangements comments: Resides in her own home in [place]. She has no children. 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 Gender identity (if verbalized by the patient): Female Spiritual care concerns: No Meds Home Medications and Allergies Home Medications Medication Instructions Recorded Confirmed Type ibuprofen 800 mg PO TID PRN 05/05/20 05/05/20 History lisinopril 20 mg PO DAILY 05/05/20 05/05/20 History metolazone 2.5 mg PO DAILY 05/05/20 05/05/20 History potassium chloride 20 meq PO DAILY 05/05/20 05/05/20 History Allergies Allergy/AdvReac Type Severity Reaction Status Date /
--- NOTE | 2020-05-08 12:46 | PM.IMPN ---
Progress Note: A&P Assessment and Plan (1) Acute kidney injury: Code(s): N17.9 - Acute kidney failure, unspecified Status: Acute Assessment and Plan: Appears to be resolved with Cr 0.80 today; 1.40 on arrival. Possibly due to volume depletion from dehydration vs injury due to rhabdomyolysis from recently being found down. Will hold on IV fluids given evidence LE edema Encourage oral hydration avoid nephrotoxic medications Monitor daily BMP (2) Rhabdomyolysis: Qualifiers: Encounter type: initial encounter Rhabdomyolysis type: traumatic Qualified Code(s): T79.6XXA - Traumatic ischemia of muscle, initial encounter Code(s): M62.82 - Rhabdomyolysis Status: Acute Assessment and Plan: CK 1154 today; improved. CHANCE also improved with IV fluids continue to encourage oral hydration Monitor CK tomorrow (3) Confusion: Code(s): R41.0 - Disorientation, unspecified Status: Acute Assessment and Plan: Appears to overall improved. Patient lives at home alone, with unclear baseline, although niece notes she has had issues with short term memory loss these past several months. TSH WNL. Leukocytosis resolved. No clear evidence of underlying infection. MRI brain negative for acute intracranial findings. Discussed with Dr. Neri who is okay with discharge, but will need follow up as an outpatient, particularly for the pituitary mass - see below Neuro checks Q 4 hours PT/OT evaluation Neuro consulted and appreciate input. (4) Contusion: Code(s): T14.8XXA - Other injury of unspecified body region, initial encounter Status: Acute Assessment and Plan: palpable hematoma noted to superior of left mid arm earlier in stay; Dr. Florence consulted and performed bedside wound exploration and evacuation of left forearm hematoma and simple repair of left forearm laceration measuring 15cm on 05/06. Wound nurse consulted at admission wrapped and elevated monitor H/H needs monitoring for infection prevention and further bleeding/injury; will likely need Wound RN HH at discharge if patient willing (5) Abnormal brain CT: Code(s): R90.89 - Other abnormal findings on diagnostic imaging of central nervous system Status: Acute Assessment and Plan: Pituitary mass noted on CT imaging of brain at arrival and confirmed with brain MRI, as well as extra-axial mass overlying the left frontal lobe most likely a meningioma. Discussed with Dr. Neri who recommends at least an outpatient referral to Neurosurgery; recommends follow up with him as an outpatient who will provide further information. Neuro consulted and appreciate recommendations F/u with Neurology and PC as an outpatient Monitor (6) Anemia: Code(s): D64.9 - Anemia, unspecified Status: Acute Assessment and Plan: Normocytic. H&H lower today. No evidence of active bleeding today, but hematoma with evacuation per Dr. Florence earlier in stay on left forearm. Possible component of dilutional effect from IVF. Iron studies suggestive of iron deficiency as well. Will trend H&H today and again tomorrow Will give IV venofer today and again tomorrow; likely discharge on PO iron F/u with PCP as well Transfuse PRN If further drop in H&H will consider stool occult and GI consultatoin Monitor Subjective Date/time seen: 05/08/20 12:46 Interval history: Patient is an 80-year-old female with probable underlying dementia and hypertension who is seen in follow up for CHANCE and rhabdomyolysis after being found down at home. Patient is A&Ox4 for me today, but is again forgetful about some topics discussed during our visit and appears to have short term memory issu
[2020-05-08 13:54] LABS: Hemoglobin 8.9 g/dL (12.0-15.0)
[2020-05-08] MEDS: IRON SUCROSE COMPLEX 200 MG in SODIUM CHLORIDE 0.9% IV 50 ML 120 MG IVPB (14:29)
[2020-05-09] VITALS: PULSE 83
[2020-05-09 04:00] VITALS: PULSE 81
[2020-05-09 05:58] LABS: Hemoglobin 8.6 g/dL (12.0-15.0)
[2020-05-09 06:00] VITALS: BP 118/49; PULSE 77; RESP 18; TEMP 36.1; O2SAT 98
[2020-05-09 06:00] LABS: Alanine Aminotransferase 35 U/L (4-35); Alkaline Phosphatase 57 U/L (38-126); Anion Gap 3 mmol/L (8-16); Aspartate Amino Transferase 54 U/L (14-36); Bilirubin,Total 0.5 mg/dL (0.2-1.3); Blood Urea Nitrogen 23 mg/dL (7-17); Calcium 8.7 mg/dL (8.4-10.2); Carbon Dioxide 29 mmol/L (22-30); Chloride 104 mmol/L (98-107); Creatine Kinase 856 U/L (30-135); Estimated CRCL calculation 37 ml/min; Estimated Glomerular Filt Rate 60; Glucose 87 mg/dL (65-105); Magnesium 1.9 mg/dL (1.6-2.3); Potassium 3.9 mmol/L (3.4-5.0); Sodium 136 mmol/L (137-145)
[2020-05-09 08:00] VITALS: PULSE 81
--- NOTE | 2020-05-09 09:35 | PM.DS ---
DS: Admitting Diagnosis Admitting Diagnosis Admitting Diagnosis: Left forearm laceration, left forearm hematoma DS: Discharge Diagnosis Discharge Diagnosis (1) Acute kidney injury: Code(s): N17.9 - Acute kidney failure, unspecified Status: Resolved Assessment and Plan: Appears to be resolved with Cr 0.90 today; 1.40 on arrival. Possibly due to volume depletion from dehydration vs injury due to rhabdomyolysis from recently being found down. D/c home with HH biomedical photographer today; family to help provide care at home. Patient performing too well with PT/OT for HH or SNF. Family considering memory care center in near future F/u with PCP Encourage oral hydration BMP on 05/13 for further monitoring (2) Rhabdomyolysis: Qualifiers: Encounter type: initial encounter Rhabdomyolysis type: traumatic Qualified Code(s): T79.6XXA - Traumatic ischemia of muscle, initial encounter Code(s): M62.82 - Rhabdomyolysis Status: Acute Assessment and Plan: CK 856 today; improved. CHANCE also improved with IV fluids continue to encourage oral hydration Monitor CK on 05/13 F/u with PCP (3) Confusion: Code(s): R41.0 - Disorientation, unspecified Status: Acute Assessment and Plan: Appears to overall improved, however may have underlying dementia. Patient lives at home alone, with unclear baseline, although niece notes she has had issues with short term memory loss these past several months. TSH WNL. Leukocytosis resolved. No clear evidence of underlying infection. MRI brain negative for acute intracranial findings. Discussed with Dr. Neri who is okay with discharge, but will need prompt follow up as an outpatient, particularly for the pituitary mass - see below PT/OT during stay F/u with Dr. Neri Recommend no driving (4) Contusion: Code(s): T14.8XXA - Other injury of unspecified body region, initial encounter Status: Acute Assessment and Plan: palpable hematoma noted to superior of left mid arm earlier in stay; Dr. Florence consulted and performed bedside wound exploration and evacuation of left forearm hematoma and simple repair of left forearm laceration measuring 15cm on 05/06. Wound nurse consulted at admission D/c with wound RN (5) Abnormal brain CT: Code(s): R90.89 - Other abnormal findings on diagnostic imaging of central nervous system Status: Acute Assessment and Plan: Pituitary mass noted on CT imaging of brain at arrival and confirmed with brain MRI, as well as extra-axial mass overlying the left frontal lobe most likely a meningioma. Discussed with Dr. Neri who recommends at least an outpatient referral to Neurosurgery; recommends follow up with him as an outpatient who will provide further information to the patient/family; states this is not emergent at this time Neuro consulted and appreciate recommendations F/u with Neurology and PCP as an outpatient No driving recommended (6) Anemia: Code(s): D64.9 - Anemia, unspecified Status: Acute Assessment and Plan: Normocytic. Hgb relatively stable at 8.6 today. No evidence of active bleeding, but hematoma with evacuation per Dr. Florence earlier in stay on left forearm. Possible component of dilutional effect from IVF. Iron studies suggestive of iron deficiency as well. Will trend H&H on 05/13 IV venofer during stay x 2 days F/u with PCP D/c on iron supplementation DS: Summary Hospital Course Reason for hospitalization: CHANCE, rhabdomyolysis. Confusion. Pituitary mass Hospital Course: Patient is a 80 yo F with history of probable underlying dementia and hypertension who presented to the emergency department in via EMS from
[2020-05-09] MEDS: POTASSIUM CHLORIDE 20 MEQ PACKET (FOR LIQUID) PO (09:49)
[2020-05-09] MEDS: lisinopriL 20 MG TABLET PO (09:49)
[2020-05-09] MEDS: metOLazone 2.5 MG TABLET PO (09:49)
== END 2020-05-09 15:55 | disposition home health service (06) | DRG 684 ==
LOC: ANHED 21:32 → ANH3MEDSUR 21:34 → ANHCPC 05-06 03:51 → ANH3MED 05-08 08:08 → ANHCPC 05-10 12:53
PROVIDERS: Nurse Practitioner; Physician Assistant; Admitting Provider Internal Medicine; Emergency Provider Emergency Medicine; PCP Internal Medicine; Visit Provider Physician Assistant
DX: N17.9 Acute kidney failure, unspecified (principal); T79.6XXA Traumatic ischemia of muscle, initial encounter; R41.0 Disorientation, unspecified; S51.812A Laceration without foreign body of left forearm, initial encounter; S40.022A Contusion of left upper arm, initial encounter; X58.XXXA Exposure to other specified factors, initial encounter; D35.2 Benign neoplasm of pituitary gland; D64.9 Anemia, unspecified; R60.0 Localized edema; I10 Essential (primary) hypertension; R90.89 Other abnormal findings on diagnostic imaging of central nervous system; Z79.899 Other long term (current) drug therapy
CPT/HCPCS: 36415; 51701; 70450; 70551; 71045; 72125; 73090; 80053; 81001; 82550; 82607; 82728; 82746; 83540; 83550; 83615; 83735; 84443; 85014; 85018; 85025; 85027; 85610; 85730; 90471; 90715; 93005; 93306; 93970; 96360; 97110; 97116; 97161; 97165; 97530; 97535; 99285; A9270; G0378; J1756; J7030

== ENCOUNTER 2020-05-12 12:23 | Emergency (ER) | payer MEDICARE, SELFPAY ==
[2020-05-12 12:28] VITALS: BP 122/50; PULSE 77; RESP 14; TEMP 35.9; O2SAT 99
--- NOTE | 2020-05-12 13:53 | ED.WOUNDLAC ---
HPI - Wound/Laceration General Chief Complaint: Wound/Laceration Stated Complaint: left arm wound Time Seen by Provider: 05/12/20 12:50 Source: patient and family Mode of arrival: wheelchair Limitations: dementia History of Present Illness HPI narrative: This is an 80-year-old female that presents the emergency department for wound to the left forearm sustained about a week ago. Daughter is with her who reports she thinks the sutures have become loose. She noticed this first yesterday. Reports there was a wound care nurse that change the bandage at her home 2 days ago. Reports she has follow-up with her primary tomorrow and is supposed to get some labs drawn tomorrow. Reports she is due to get her sutures out on the of this month. Wound care dressed her wound 2 days ago at home. Reports edema in her lower extremities which is chronic for her for which she takes metolazone. Denies fever, chest pain, shortness of breath, erythema, or abnormal drainage. Related Data Home Medications Medication Instructions Recorded Confirmed ibuprofen 800 mg PO TID PRN 05/05/20 05/05/20 lisinopril 20 mg PO DAILY 05/05/20 05/05/20 metolazone 2.5 mg PO DAILY 05/05/20 05/05/20 potassium chloride 20 meq PO DAILY 05/05/20 05/05/20 Allergies Allergy/AdvReac Type Severity Reaction Status Date / Time No Known Allergies Allergy Verified 05/12/20 13:22 Review of Systems Review of Systems: Narrative: CONSTITUTIONAL: Denies fever CARDIOVASCULAR: Reports edema. Denies chest pain RESPIRATORY: Denies dyspnea. SKIN: Reports wound All systems reviewed & are unremarkable except as noted in HPI and below PMFSH Past Medical History Medical History Hypertension Surgical History Surgical History History of hip surgery ORIF right hip fracture Family History Family History Other Hypertension Social History Social History Social History: Surrogate decision maker: Savanna Nuno, niece. She does not have a power of workers compensation defense attorney. Code status: Full code. Smoking status: Never smoker Second hand tobacco smoke exposure: No Alcohol intake: never Substance use: never Substance use type: does not use Additional living arrangements comments: Resides in her own home in [place]. She has no children. 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 Gender identity (if verbalized by the patient): Female Spiritual care concerns: No Exam Narrative: Exam Narrative: GENERAL: Elderly, well-nourished, and in no acute distress. HEAD: Normocephalic, atraumatic. EYES: EOMI. CHEST: Clear to auscultation. No respiratory distress. No wheezes rales or rhonchi HEART: Regular rate and rhythm. No murmur heard. Normal peripheral pulses. EXTREMITIES: Normal range of motion. 2+ pitting edema to the bilateral lower extremities. 10 cm flap laceration/skin tear to the left forearm which has been sutured. There is some dehiscence of part of the wound that is healing by secondary intention. No abnormal drainage, or surrounding erythema or edema to suggest infection SKIN: Warm, dry, no rash. NEURO: No focal deficits. Alert and oriented x3. PSYCH: Normal mood and affect Course Vital Signs Vital signs: Vital Signs Temperature 96.7 F L 05/12/20 12:28 Pulse Rate 77 05/12/20 12:28 Respiratory Rate 14 05/12/20 12:28 Blood Pressure 122/50 L 05/12/20 12:28 Pulse Oximetry 99 05/12/20 12:28 Temperature 96.7 F L 05/12/20 12:28 Pulse Rate 77 05/12/20 12:28 Respiratory Rate 14 05/12/20 12:28 Blood Pressure 122/50 L 05/12/20 12:28 Pulse Oximetry 99 05/12/20 12:28 Procedures Other Procedure Procedure 1: Other Procedure: 3 sutures removed from left forearm laceration with scissors
--- NOTE | 2020-05-12 14:20 | PC.NURSE ---
blood sent to the lab at 1407
[2020-05-12 14:47] LABS: Basophils Percent Auto 0.3 % (0.2-1.2); Eosinophils Absolute Auto 0.2 K/mm3 (0-0.3); Eosinophils Percent Auto 2.7 % (0-4.4); Hematocrit 27.6 % (37.0-47.0); Hemoglobin 8.9 g/dL (12.0-15.0); Immature Granulocyte Absolute 0.08 K/mm3 (0.00-0.031); Immature Granulocyte Percent A 0.9 % (0-0.5); Lymphocytes Absolute Auto 0.99 K/mm3 (0.9-3.2); Lymphocytes Percent Auto 11.1 % (18.3-44.2); Mean Corpuscular HGB Conc 32.2 g/dl (32-36); Mean Corpuscular Hemoglobin 30.3 pg (26-34); Mean Corpuscular Volume 93.9 fl (80-100); Monocytes Absolute Auto 0.9 K/mm3 (0.1-0.6); Monocytes Percent Auto 9.6 % (2.6-8.5); Neutrophils Absolute Auto 6.7 K/mm3 (1.3-6.7); Neutrophils Percent Auto 75.4 % (45.5-73.1); Platelet Count Result 334 k/mm3 (150-375); Red Blood Count 2.94 M/mm3 (4.2-5.4); Red Cell Distribution Width 15.9 % (11.5-14.5); White Blood Count 8.9 K/mm3 (4.5-10.0)
[2020-05-12 14:55] LABS: Anion Gap 8 mmol/L (8-16); Blood Urea Nitrogen 66 mg/dL (7-17); Calcium 9.2 mg/dL (8.4-10.2); Carbon Dioxide 26 mmol/L (22-30); Chloride 105 mmol/L (98-107); Creatine Kinase 211 U/L (30-135); Estimated CRCL calculation 22 ml/min; Estimated Glomerular Filt Rate 29; Glucose 105 mg/dL (65-105); Magnesium 2.3 mg/dL (1.6-2.3); Potassium 4.9 mmol/L (3.4-5.0); Sodium 139 mmol/L (137-145)
[2020-05-12 15:05] LABS: NT Pro B Type Natriuretic Pept 1320 PG/ML (5-100)
--- NOTE | 2020-05-12 15:21 | PC.NURSE ---
Patient updated that we are awaiting dressing from central supply. Also informed that [facility] will be coming to talk to the patient and family
[2020-05-12] MEDS: SODIUM CHLORIDE 0.9% IV 500 ML 999 ML IV CONT (16:15)
[2020-05-12 17:15] VITALS: BP 131/55; PULSE 75; RESP 18; TEMP 36.3; O2SAT 94
== END 2020-05-12 18:20 | disposition home or self-care (01) ==
PROVIDERS: Physician Assistant; Emergency Provider Emergency Medicine; PCP Internal Medicine
DX: S51.812D Laceration without foreign body of left forearm, subsequent encounter (principal); N17.9 Acute kidney failure, unspecified; I10 Essential (primary) hypertension; W19.XXXD Unspecified fall, subsequent encounter
CPT/HCPCS: 36415; 80048; 82550; 83735; 83880; 85025; 96360; 99283; J7040

== ENCOUNTER 2020-05-14 15:15 | Emergency (ER) | payer MEDICARE, SELFPAY ==
--- NOTE | ~2020-05-14 | XR_ITS ---
EXAMINATION: XR chest 1V portable DATE: 05/14/2020 16:55 INDICATION: Weakness. Frequent falls. TECHNIQUE: A single frontal view of the chest was obtained. COMPARISON: Chest single view 05/05/2020 FINDINGS: The chest demonstrates clear lungs without pneumonia, pleural effusion, or pneumothorax. Th e heart size is normal. IMPRESSION: 1. No acute cardiopulmonary disease. Reviewed, dictated and finalized at location [facility]
--- NOTE | ~2020-05-14 | CT_ITS ---
EXAMINATION: CT brain wo con DATE: 05/14/2020 18:36 INDICATION: Altered mental status TECHNIQUE: Computed tomography (CT) of the head was performed without intravenous contrast. Sagittal and coronal reconstructions were performed. The mA was adjusted according to patient size. Iterative reconstruction technique was employed. The dose-length product was 605.33 mGy-cm. COMPARISON: head CT dated 05/05/2020 and brain MR dated 05/06/2020 FINDINGS: No acute intracranial hemorrhage or acute infarction. Again seen is a 1.9 x 1.8 x 1.0 cm dural based mass overlying the left frontal lobe most consistent with a meningioma. Also unchanged is a mixed terry id and cystic mass which appears to arise from the pituitary which measures 2.0 x 1.7 x 1.3 cm. There is moderate scattered white matter hypoattenuation consistent with chronic small vessel ischemic dis ease. There is symmetric prominence of the sulci consistent with moderate age-appropriate diffuse cer ebral volume loss. The orbits, paranasal sinuses and mastoid air cells are normal. Intracranial calci fied cerebral atherosclerosis is noted. IMPRESSION: 1. No acute intracranial process. 2. Unchanged left frontal extra-axial mass most likely meningioma. 3. Unchanged complex mixed solid and cystic pituitary mass most likely either a pituitary adenoma or craniopharyngioma. 4. Age-related changes including moderate diffuse volume loss and moderate scattered white matter hyp oattenuation consistent with chronic small vessel ischemic disease. Reviewed, dictated and finalized at [facility]. NSIC ACCOUNTANT IMPRESSION: 1. No acute intracranial process. 2. Unchanged left frontal extra-axial mass most likely meningioma. 3. Unchanged complex mixed solid and cystic pituitary mass most likely either a pituitary adenoma or craniopharyngioma. 4. Age-related changes including moderate diffuse volume loss and moderate scat tered white matter hypoattenuation consistent with chronic small vessel ischemi c disease.
[2020-05-14 15:19] VITALS: BP 111/50; PULSE 87; RESP 18; TEMP 36.8; O2SAT 100
[2020-05-14 15:42] LABS: Hematocrit 28.6 % (37.0-47.0); Hemoglobin 9.3 g/dL (12.0-15.0); Mean Corpuscular HGB Conc 32.5 g/dl (32-36); Mean Corpuscular Hemoglobin 29.8 pg (26-34); Mean Corpuscular Volume 91.7 fl (80-100); Platelet Count Result 333 k/mm3 (150-375); Red Blood Count 3.12 M/mm3 (4.2-5.4); Red Cell Distribution Width 15.7 % (11.5-14.5); White Blood Count 17.4 K/mm3 (4.5-10.0)
--- NOTE | 2020-05-14 16:00 | ED.GENADULT ---
HPI - General Adult General Chief complaint: Weakness Stated complaint: WEAKNESS Time Seen by Provider: 05/14/20 15:17 Source: patient History of Present Illness HPI narrative: Patient is a 80 y/o female sent in by family for concern about frequent falls and ability to take care of herself. She states that she fell last night, but denies any injury. She is unable to provide the details of fall. She has chronic leg swelling. She is poor historian. Related Data Home Medications Medication Instructions Recorded Confirmed ibuprofen 800 mg PO TID PRN 05/05/20 05/05/20 lisinopril 20 mg PO DAILY 05/05/20 05/15/20 metolazone 2.5 mg PO DAILY 05/05/20 05/05/20 potassium chloride 20 meq PO DAILY 05/05/20 05/15/20 Allergies Allergy/AdvReac Type Severity Reaction Status Date / Time No Known Allergies Allergy Verified 05/14/20 15:24 Review of Systems Constitutional: Constitutional: Denies chills, Denies fever(s), Denies headache(s) and Denies weakness Eyes: Eyes: Denies blurry vision ENT: Denies headache(s) and Denies neck pain Cardiovascular: Cardiovascular: Denies chest pain, Reports leg edema and Denies dyspnea Respiratory: Respiratory: Denies cough and Denies dyspnea Gastrointestinal: Gastrointestinal: Denies abdominal pain, Denies diarrhea, Denies nausea and Denies vomiting Genitourinary: Genitourinary: Denies hematuria and Denies dysuria Musculoskeletal: Musculoskeletal: Denies back pain and Denies neck pain Neurologic: Denies headache(s) and Denies weakness [facility] Past Medical History Medical History Hypertension Surgical History Surgical History History of hip surgery ORIF right hip fracture Family History Family History Other Hypertension Social History Social History Social History: Surrogate decision maker: Savanna Nuno, niece. She does not have a power of modeling agency manager. Code status: Full code. Smoking status: Never smoker Second hand tobacco smoke exposure: No Alcohol intake: never Substance use: never Substance use type: does not use Additional living arrangements comments: Resides in her own home in [place]. She has no children. 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 Gender identity (if verbalized by the patient): Female Spiritual care concerns: No Exam Const: General: no acute distress and well developed Orientation/consciousness: oriented to person, oriented to place, oriented to time and patient oriented x3 HENMT: Head: normocephalic Ears: external ears normal General nose exam: Normal external nose present Eyes: General: appearance normal, both eyes and all related structures Conjunctivae: conjunctivae normal Neck: Neck: normal visual inspection and full ROM Chest: Chest palpation & inspection: normal inspection of the chest and no tenderness Resp: Effort & Inspection: normal respiratory effort Auscultation: clear to auscultation bilaterally Cardio: Rate: regular rate Rhythm: regular rhythm GI: GI Palp: No abdominal tenderness and Yes Soft to palpation Skin: General skin exam: normal color and turgor normal Neuro: General: oriented to person, oriented to place, oriented to time and patient oriented x3 Cognition (Neuro): normal cognition Extrem: General: normal to inspection, full ROM and pedal edema bilaterally Psych: Appearance: grossly normal Mental Status: mental status grossly normal Affect: normal affect Course Reevaluation(s) Reevaluation #1: Nurse called family and they want patient transferred to [facility] if possible. Dr. Zarate is patient's PCP. Date: 05/14/20 Time: 18:01 Consultations Consultation #1: Discussed with Dr. Sharp (hospitalist) at [facility]. He states that will accept the jose angel
[2020-05-14 16:01] LABS: Alanine Aminotransferase 30 U/L (4-35); Albumin Level 3.8 g/dL (3.5-5.1); Alkaline Phosphatase 98 U/L (38-126); Anion Gap 11 mmol/L (8-16); Aspartate Amino Transferase 47 U/L (14-36); Bilirubin,Total 0.5 mg/dL (0.2-1.3); Blood Urea Nitrogen 57 mg/dL (7-17); Calcium 9.1 mg/dL (8.4-10.2); Carbon Dioxide 23 mmol/L (22-30); Chloride 105 mmol/L (98-107); Estimated CRCL calculation 21 ml/min; Estimated Glomerular Filt Rate 31; Glucose 131 mg/dL (65-105); Potassium 4.4 mmol/L (3.4-5.0); Sodium 139 mmol/L (137-145)
[2020-05-14 16:06] LABS: Band Neutrophils Percent 6 % (0-6); Lymphocytes Absolute Manual 1.04 K/mm3 (1.1-4.5); Monocytes Absolute Manual 0.17 K/mm3 (0.1-0.90); Monocytes Percent Manual 1 % (3-9); Neutrophils Absolute Manual 16.18 K/mm3 (1.7-7.2); Neutrophils Percent Manual 87 % (46-73); Total Cells Counted 100
[2020-05-14 16:10] LABS: Anisocytosis 1+ (NORMAL); Platelet Estimate Adequate (Adequate)
[2020-05-14 16:19] LABS: Add Urine Microscopic? YES; Appearance Urine Cloudy (Clear); Bacteria Urine 2+ /hpf; Bilirubin Urine Negative (Negative); Blood Urine 2+ (Negative); Color Urine Yellow (Yellow); Glucose Urine UA Negative (Negative); Ketones Urine Trace mg/dL (Negative); Leukocyte Esterase Ur 3+ LEU/UL (Negative); Mucus Urine Rare /lpf; Nitrate Urine Negative (Negative); Protein Urine 2+ mg/dL (Negative); Specific Grav Ur 1.015 (1.001-1.035); Urobilinogen Urine Negative mg/dL (<2.0); WBC Urine >75 /hpf
--- NOTE | 2020-05-14 16:37 | ECG_ITS ---
Measurements Intervals [place] Rate: 100 P: TN: 0 QRS: 4 QRSD: 102 T: 106 QT: 358 QTc: 462 Interpretive Statements SINUS TACHYCARDIA FREQUENT ATRIAL PREMATURE COMPLEXES NONSPECIFIC ST & T-WAVE ABNORMALITY- HIGH LATERAL LEADS BASELINE ARTIFACT- I, II, III, AVR, AVL, AVF, V1-V6 ABNORMAL ECG Electronically Signed On 05-15-2020 7:20:34 BLENDING KETTLE TENDER by Nestor Hernandez D.O.
[2020-05-14 17:46] LABS: Lactic Acid Reflex 0.7 mmol/L (0.7-2.1)
--- NOTE | 2020-05-14 18:01 | PC.NURSE ---
Dr. Ley is wanting to admit pt. States that no rooms available here at [facility], wanted me call family and see if transferring to [facility] would be ok. Spoke with pts brother Gabriele and he requested pt to be transferred to [facility] in [place]. Spoke with Dr. Ley and he states he will try. Informed Gabriele of this and informed him that we will be in contact.
[2020-05-14 18:18] VITALS: BP 111/56; PULSE 83; RESP 15; O2SAT 98
[2020-05-14 18:46] VITALS: BP 107/78; PULSE 85; RESP 18; O2SAT 94
[2020-05-14 19:30] VITALS: BP 108/72; PULSE 109; RESP 16; O2SAT 95
--- NOTE | 2020-05-14 20:58 | PC.NURSE ---
Addendum entered by Sujey Bernard 05/14/20 21:08: 2104: Called [facility] to transport to [facility]...ETA 22:30. Original Note: Called [facility] to transport to [facility]. Rm 205. Declined. No trucks available. Only have on ALS for local 911.
--- NOTE | 2020-05-14 21:04 | PC.NURSE ---
RN to RN report given at 2100 to 2nd [address] nd RN at [facility]. Pt. to go to room 205.
[2020-05-14 22:03] VITALS: BP 106/68; PULSE 104; RESP 16; O2SAT 98
== END 2020-05-14 23:12 | disposition short-term general hospital (02) ==
PROVIDERS: Emergency Provider Emergency Medicine; PCP Internal Medicine
DX: N39.0 Urinary tract infection, site not specified (principal); D72.829 Elevated white blood cell count, unspecified; I10 Essential (primary) hypertension; Z91.81 History of falling
CPT/HCPCS: 36415; 70450; 71045; 80053; 81001; 83605; 85025; 87040; 87077; 87086; 87088; 87186; 93005; 96365; 99285; J0696

== ENCOUNTER 2020-05-14 23:30 | Inpatient (IN) | payer MEDICARE, SELFPAY ==
--- NOTE | 2020-05-14 23:30 | ADMGEN ---
This patient, Izabela Moreno, was admitted to 2nd Floor Room 205-2. Patient oriented to hospital policies and general routines including ID bracelet, bed and alarms, visiting hours, pain management, procedures, bathroom and other care routines, personal items, smoking policy, room service/diet, and visiting hours. Patient poor historian. Information provided will need to reinforce prn. Information on how to activate the Rapid Response Team has been discussed. Patient are encouraged to report perceived risks to care and to ask questions if they do not understand what they are told or what they should do.
[2020-05-15] VITALS (10 sets, daily range): BP systolic 98–115; BP diastolic 41–49; PULSE 90–116; RESP 16–20; TEMP 36.7–38.4; O2SAT 96–99; BMI 21.5
--- NOTE | 2020-05-15 01:30 | PC.NURSE ---
Telemetry DC'd per MD order. Remains SR with rare PAC
--- NOTE | 2020-05-15 01:52 | PC.NURSE ---
Dr. Campa called and ordered pt to be placed on telemetry at this time.
--- NOTE | 2020-05-15 02:11 | PC.NURSE ---
Contacted [facility]'s warehouse pricing and inventory clerk per Dr. Campa's request regarding pt possibly having a hx of atrial fibrillation. They didnt find any hx of a-fib from previous admissions. Reported this information to Dr. Campa and new orders were received and noted.
--- NOTE | 2020-05-15 02:19 | ECG_ITS ---
Measurements Intervals [place] Rate: 90 P: 60 IA: 129 QRS: -9 QRSD: 102 T: 70 QT: 382 QTc: 468 Interpretive Statements SINUS RHYTHM FREQUENT ATRIAL PREMATURE COMPLEXES LEFT VENTRICULAR HYPERTROPHY AND ST-T CHANGE MINIMAL Q WAVES- HIGH LATERAL LEADS ABNORMAL ECG Electronically Signed On 05-15-2020 8:11:22 FILTRATION SUPERVISOR by Nestor Hernandez D.O.
--- NOTE | 2020-05-15 03:23 | PC.NURSE ---
[facility] contacted per Dr. Campa's request to check if a urine culture was done; They said it was done at 1600 on 05/14/20 and sent out to process. Dr. Campa notified and no new orders at this time.
--- NOTE | 2020-05-15 03:55 | PC.NURSE ---
Lab called with critical troponin level, notified.
--- NOTE | 2020-05-15 03:57 | PC.NURSE ---
Dr. Campa notified of pt's spasms and eyes deviating to the left. Dr. Campa up to the floor to examine pt. New orders received and noted.
[2020-05-15 03:59] LABS: Troponin I 0.19 ng/mL (0.00-0.056)
[2020-05-15 04:00] LABS: BNP 981 pg/mL (0-100)
--- NOTE | 2020-05-15 06:59 | PC.NURSE ---
Addendum entered by Yoon Shukla RN 05/15/20 07:19: Right leg skin tear. No skin tear on left leg. Original Note: Left leg skin tear, kerlix gauze replaced.
--- NOTE | 2020-05-15 08:49 | PM.IMHP ---
H&P: HPI History of Present Illness Date/Time: 05/15/20 08:49 Chief complaint: Weakness Narrative: Izabela Moreno is a 80 year old female transferred to this location from [facility] as a direct admit for urinary tract infection and leukocytosis. according to the ER report from [place] patient was brought in from the family for concern due to the patient's frequent falls and lack of ability to take care of herself. Apparently patient reported she had fallen the night before but denies any injuries as result of that fall. This patient has a history of CHF, anemia, pituitary adenoma, meningioma, rhabdomyolysis, acute kidney injury. Talking with the patient this morning she does not recall what transpired in order to bring her to the hospital for evaluation she does know that she is in the hospital. Review of Systems Constitutional: Constitutional: Reports no additional constitutional complaints, Denies body ache(s), Denies chills, Denies fever(s) and Denies headache(s) Cardiovascular: Cardiovascular: Reports no additional cardiovascular complaints, Denies chest pain, Denies chest pain at rest and Denies chest pain with activity Respiratory: Respiratory: Denies dyspnea and Denies dyspnea on exertion Gastrointestinal: Gastrointestinal: Reports no additional gastrointestinal complaints Genitourinary: Genitourinary: Reports no additional female genitourinary complaints Neurologic: Reports frequent falls (Patient recalls she has been falling more often), Denies focal weakness, Denies loss of vision, Reports memory loss (for events leading up to hospitalization) and Denies numbness Psychiatric: Psychiatric: Reports no additional psychiatric complaints [facility] Past Medical History Medical History Hypertension Surgical History Surgical History History of hip surgery ORIF right hip fracture Family History Family History Other Hypertension Social History Social History Social History: Surrogate decision maker: Savanna Nuno, niece. She does not have a power of glass production machine operator. Code status: Full code. Smoking status: Never smoker Second hand tobacco smoke exposure: No Alcohol intake: never Substance use: never Substance use type: does not use Additional living arrangements comments: Resides in her own home in [place]. She has no children. 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 Gender identity (if verbalized by the patient): Female Spiritual care concerns: No Meds Home Medications and Allergies Home Medications Medication Instructions Recorded Confirmed Type ibuprofen 800 mg PO TID PRN 05/05/20 05/15/20 History lisinopril 20 mg PO DAILY 05/05/20 05/15/20 History potassium chloride 20 meq PO DAILY 05/05/20 05/15/20 History ferrous sulfate 324 mg PO DAILY #30 tablet 05/09/20 05/15/20 Rx Allergies Allergy/AdvReac Type Severity Reaction Status Date / Time No Known Allergies Allergy Verified 05/14/20 15:24 Vital Signs Vital Signs - 24 hr 05/15/20 00:00 05/15/20 01:50 05/15/20 05:22 Temperature Pulse Rate 116 H 90 90 Respiratory Rate 20 Blood Pressure Pulse Oximetry 98 05/15/20 08:00 Temperature 98.1 F Pulse Rate 104 H Respiratory Rate 18 Blood Pressure 102/47 L Pulse Oximetry 96 Exam Const: General: cooperative, comfortable and no acute distress Resp: Effort & Inspection: normal respiratory effort Auscultation: clear to auscultation bilaterally Cardio: Rate: regular rate Rhythm: regular rhythm (becomes tachycardic with activity) Heart sounds: Murmur heart sound present (systolic) GI: GI Palp: Yes Soft to palpation Auscultation: Hypoactive bowel sounds present Neuro:
[2020-05-15] MEDS: FERROUS SULFATE 324 MG TABLET PO (08:57)
[2020-05-15] MEDS: ENOXAPARIN 30 MG/0.3 ML SYRINGE SUB-Q (08:58)
[2020-05-15 09:28] LABS: Basophils Absolute Auto 0.03 K/mm3 (0.00-0.10); Basophils Percent Auto 0.2 % (0.0-1.0); Eosinophils Absolute Auto 0.03 K/mm3 (0.02-0.50); Eosinophils Percent Auto 0.2 % (1.0-6.0); Hematocrit 25.8 % (35.0-42.0); Hemoglobin 8.3 g/dL (11.7-13.8); Immature Granulocyte Absolute 0.09 K/mm3 (0.00-0.00); Immature Granulocyte Percent A 0.5 % (0.0-0.0); Lymphocytes Percent Auto 3.4 % (18.0-42.0); Mean Corpuscular HGB Conc 32.2 g/dL (32.0-36.0); Mean Corpuscular Volume 93.1 fL (78.0-102.0); Mean Platelet Volume 11.1 fl (9.2-11.8); Monocytes Absolute Auto 0.47 K/mm3 (0.10-0.90); Monocytes Percent Auto 2.7 % (2.0-11.0); Neutrophils Absolute Auto 16.3 K/mm3 (1.7-7.2); Platelet Count Result 295 K/mm3 (150-420); Red Blood Count 2.77 M/mm3 (4.20-5.40); Red Cell Distribution Width 15.8 % (11.6-14.4); White Blood Count 17.6 K/mm3 (4.8-10.8)
[2020-05-15 09:41] LABS: Troponin I 0.11 ng/mL (0.00-0.056)
[2020-05-15 09:42] LABS: Anion Gap 13 mmol/L (8-16); Carbon Dioxide 23 mmol/L (21-32); Chloride 105 mmol/L (98-108); Sodium 141 mmol/L (136-145)
[2020-05-15 09:42] LABS: Creatine Kinase 434 U/L (26-192)
[2020-05-15 09:43] LABS: Blood Urea Nitrogen 62 mg/dL (7-18); Calcium 8.5 mg/dL (8.5-10.1); Estimated CRCL calculation 18 ml/min; Estimated Glomerular Filt Rate 23; Glucose 135 mg/dL (70-99); Osmolality Calculated 311 mOsm/kg (285-295)
--- NOTE | 2020-05-15 10:40 | PC.NURSE ---
heel protectors applied, states heels are burning on the sheets, elevated on pillow
--- NOTE | 2020-05-15 12:08 | PC.NURSE ---
Notified by lab of critical troponin at 0.083. FLIGHT COORDINATOR notified.
[2020-05-15 12:09] LABS: Troponin I 0.08 ng/mL (0.00-0.056)
[2020-05-15] MEDS: SODIUM CHLORIDE 0.9% IV 1,000 ML 100 ML IV CONT ×2 (12:59→22:21)
[2020-05-15 15:31] LABS: Troponin I 0.06 ng/mL (0.00-0.056)
--- NOTE | 2020-05-15 15:50 | PC.NURSE ---
Tano Ochoa, Hospitalist, notified that current Troponin result is 0.06. No new orders at this time.
--- NOTE | 2020-05-15 19:15 | PC.NURSE ---
PT INCONTINENT OF URINE, PROVIDED CORBY CARE AND CLEAN LINENS, PT FELT WARM AND CHEEKS FLUSHED, TEMPERATURE 101.2. CHARGE NURSE AWARE.
[2020-05-15] MEDS: ACETAMINOPHEN 325 MG TABLET 650 MG PO (19:26)
--- NOTE | 2020-05-15 21:41 | PM.EVENT ---
Event Note Event Note Event Note: I have examined the patient and reviewed the chart. I discussed the patient's care with Ceferino Ochoa APN and agree with his assessment and plan.
[2020-05-16] VITALS: BP 115/49; PULSE 98; RESP 18; TEMP 36.5; O2SAT 99
[2020-05-16 04:00] VITALS: BP 116/47; PULSE 102; RESP 18; TEMP 37.1; O2SAT 98
[2020-05-16 06:43] LABS: Basophils Absolute Auto 0.01 K/mm3 (0.00-0.10); Basophils Percent Auto 0.1 % (0.0-1.0); Eosinophils Absolute Auto 0.09 K/mm3 (0.02-0.50); Eosinophils Percent Auto 0.8 % (1.0-6.0); Hematocrit 22.4 % (35.0-42.0); Hemoglobin 7.1 g/dL (11.7-13.8); Immature Granulocyte Absolute 0.08 K/mm3 (0.00-0.00); Immature Granulocyte Percent A 0.7 % (0.0-0.0); Lymphocytes Absolute Auto 0.45 K/mm3 (1.10-4.50); Lymphocytes Percent Auto 3.9 % (18.0-42.0); Mean Corpuscular HGB Conc 31.7 g/dL (32.0-36.0); Mean Corpuscular Hemoglobin 29.5 pg (27.0-31.0); Mean Corpuscular Volume 92.9 fL (78.0-102.0); Mean Platelet Volume 11.2 fl (9.2-11.8); Monocytes Absolute Auto 0.52 K/mm3 (0.10-0.90); Monocytes Percent Auto 4.5 % (2.0-11.0); Neutrophils Absolute Auto 10.3 K/mm3 (1.7-7.2); Platelet Count Result 251 K/mm3 (150-420); Red Blood Count 2.41 M/mm3 (4.20-5.40); White Blood Count 11.5 K/mm3 (4.8-10.8)
[2020-05-16 07:01] LABS: Alanine Aminotransferase 28 U/L (14-59); Albumin Level 1.9 g/dL (3.4-5.0); Alkaline Phosphatase 71 U/L (46-116); Anion Gap 12 mmol/L (8-16); Aspartate Amino Transferase 25 U/L (15-37); Bilirubin,Total 0.2 mg/dL (0.00-1.00); Blood Urea Nitrogen 49 mg/dL (7-18); Calcium 7.4 mg/dL (8.5-10.1); Carbon Dioxide 21 mmol/L (21-32); Chloride 108 mmol/L (98-108); Estimated CRCL calculation 25 ml/min; Estimated Glomerular Filt Rate 36; Glucose 89 mg/dL (70-99); Osmolality Calculated 304 mOsm/kg (285-295); Potassium 3.7 mmol/L (3.5-5.1); Sodium 141 mmol/L (136-145); Total Protein 4.7 g/dL (6.4-8.2)
[2020-05-16 07:25] VITALS: BP 102/41; PULSE 86; PULSE 88; RESP 18; TEMP 36.1; O2SAT 97
--- NOTE | 2020-05-16 07:54 | PM.IMPN ---
Progress Note: A&P Assessment and Plan (1) UTI (urinary tract infection): Qualifiers: Hematuria presence: without hematuria Urinary tract infection type: site unspecified Qualified Code(s): N39.0 - Urinary tract infection, site not specified <Keron OchoaRETA-C - Last Filed: 05/16/20 12:28> Code(s): N39.0 - Urinary tract infection, site not specified <Keron Ochoa BOOT TURNER-C - Last Filed: 05/16/20 12:28> Status: Acute <Keron OchoaRETA-C - Last Filed: 05/16/20 12:28> Assessment and Plan: 05/15/2020 urine culture pending, blood cultures show gram-negative bacilli in both aerobic and anaerobic bottles, Rocephin started 1 g daily, anticipate as infection improves mental status will improve. 05/16/2020 urine culture shows E coli sensitivity to Cefdinir, will switch from Rocephin to Cefdinir so patient can go home on p.o. medication, blood culture still pending, mid lower abdominal pain on palpation has improved <Keron OchoaRETA-C - Last Filed: 05/16/20 12:28> (2) Anemia: Code(s): D64.9 - Anemia, unspecified <Keron OchoaRETA-C - Last Filed: 05/16/20 12:28> Status: Acute <Keron OchoaRETA-C - Last Filed: 05/16/20 12:28> Assessment and Plan: 05/15/2020 On admit H/H 9.3/28.6 and today H/H decreased to 8.3/25.8, will monitor, patient is on ferrous sulfate, monitoring vital signs including SpO2, pick up driver in place 05/16/2020 today H/H is 7.1/22.5, have stopped IV fluids, order occult stool blood, will be obtaining new H&H around 11:00 a.m., will transfuse if needed. 1100 hours H/H 7.8/25, nice improvement will continue to monitor <Keron OchoaRETA-C - Last Filed: 05/16/20 12:28> (3) Acute kidney injury: Code(s): N17.9 - Acute kidney failure, unspecified <Keron Freedman GURPREET OchoaC - Last Filed: 05/16/20 12:28> Status: Resolved <Keron Freedman ANGELA Ochoa - Last Filed: 05/16/20 12:28> Assessment and Plan: 05/15/2020 initial BUN creatinine 57/1.6 now 62/2.05, normal saline at 100 mL/H for gentle hydration, will monitor BMP. 05/16/2020 renal function improved today BUN creatinine 49/1.4 CrCl 25, GFR 36, will continue to monitor, this appears to be at her baseline <ANGELA Sutherland - Last Filed: 05/16/20 12:28> (4) CHF (congestive heart failure): Code(s): I50.9 - Heart failure, unspecified <Keron CeferinoANGELA Landry - Last Filed: 05/16/20 12:28> Status: Acute <Keron CeferinoANGELA Landry - Last Filed: 05/16/20 12:28> Assessment and Plan: 05/15/2020 BNP 981, lungs clear, speech clear, no peripheral edema, will monitor for fluid overload, ibuprofen held lisinopril held, patient on pick up driver and does become tachycardic with increased activity. 05/16/2020 lungs remain clear, speech clear, no peripheral edema, ibuprofen and lisinopril continue to be on hold, tachycardia improved since yesterday, max rate seen 110s <ANGELA Sutherland - Last Filed: 05/16/20 12:28> Subjective Date/time seen: 05/16/20 07:54 This morning patient was sitting up eating breakfast. When asked how she fell she was saying she felt worse today than she did yesterday. She said she did enjoy the breakfast this morning and almost finished her plate. Patient states that she would like to stay in the hospital for another night. Patient denies any trouble breathing no chest pain no abdominal issues other than lower abdominal pain with palpation. Patient denies any difficulty urinating or burning with urination. Patient does admit that she feels really tired and weak this morning. <ANGLEA Sutherland - Last Filed: 05/16/20 12:28> Review of Systems Constitutional: Constitutional: Reports weakness <ANGELA Sutherland - Last Filed: 05/16/20 12:28> Cardiovascular: Cardiovascular: Reports no additional cardiovascular complaints <ANGELA Sutherland - Last Filed: 05/16/20 12:28>
[2020-05-16] MEDS: ENOXAPARIN 30 MG/0.3 ML SYRINGE SUB-Q (08:55)
[2020-05-16] MEDS: FERROUS SULFATE 324 MG TABLET PO (08:55)
[2020-05-16 11:15] LABS: Hemoglobin 7.8 g/dL (11.7-13.8)
[2020-05-16 12:00] VITALS: PULSE 86; PULSE 87; RESP 18; O2SAT 97
--- NOTE | 2020-05-16 12:16 | PM.IMPN ---
Progress Note: A&P Assessment and Plan (1) UTI (urinary tract infection): Qualifiers: Hematuria presence: without hematuria Urinary tract infection type: site unspecified Qualified Code(s): N39.0 - Urinary tract infection, site not specified <Keron OchoaRETA-C - Last Filed: 05/16/20 12:26> Code(s): N39.0 - Urinary tract infection, site not specified <Keron Ochoa PHARMACY SPECIALIST-C - Last Filed: 05/16/20 12:26> Status: Acute <Keron OchoaRETA-C - Last Filed: 05/16/20 12:26> Assessment and Plan: 05/15/2020 urine culture pending, blood cultures show gram-negative bacilli in both aerobic and anaerobic bottles, Rocephin started 1 g daily, anticipate as infection improves mental status will improve. 05/16/2020 urine culture shows E coli sensitivity to Cefdinir, will switch from Rocephin to Cefdinir so patient can go home on p.o. medication, blood culture still pending, mid lower abdominal pain on palpation has improved <Keron OchoaRETA-C - Last Filed: 05/16/20 12:26> (2) Anemia: Code(s): D64.9 - Anemia, unspecified <Keron OchoaRETA-C - Last Filed: 05/16/20 12:26> Status: Acute <Keron OchoaRETA-C - Last Filed: 05/16/20 12:26> Assessment and Plan: 05/15/2020 On admit H/H 9.3/28.6 and today H/H decreased to 8.3/25.8, will monitor, patient is on ferrous sulfate, monitoring vital signs including SpO2, director of cardiac rehabilitation in place 05/16/2020 today H/H is 7.1/22.5, have stopped IV fluids, order occult stool blood, will be obtaining new H&H around 11:00 a.m., will transfuse if needed. 1100 hours H/H 7.8/25, nice improvement will continue to monitor <Keron OchoaRETA-C - Last Filed: 05/16/20 12:26> (3) Acute kidney injury: Code(s): N17.9 - Acute kidney failure, unspecified <Keron Freedman GURPREET OchoaC - Last Filed: 05/16/20 12:26> Status: Resolved <Keron Freedman ANGELA Ochoa - Last Filed: 05/16/20 12:26> Assessment and Plan: 05/15/2020 initial BUN creatinine 57/1.6 now 62/2.05, normal saline at 100 mL/H for gentle hydration, will monitor BMP. 05/16/2020 renal function improved today BUN creatinine 49/1.4 CrCl 25, GFR 36, will continue to monitor, this appears to be at her baseline <Keron De La VegaGURPREET aLndryC - Last Filed: 05/16/20 12:26> (4) CHF (congestive heart failure): Code(s): I50.9 - Heart failure, unspecified <Keron Freedman ANGELA Ochoa - Last Filed: 05/16/20 12:26> Status: Acute <Keron Freedman ANGELA Ochoa - Last Filed: 05/16/20 12:26> Assessment and Plan: 05/15/2020 BNP 981, lungs clear, speech clear, no peripheral edema, will monitor for fluid overload, ibuprofen held lisinopril held, patient on director of cardiac rehabilitation and does become tachycardic with increased activity. 05/16/2020 lungs remain clear, speech clear, no peripheral edema, ibuprofen and lisinopril continue to be on hold, tachycardia improved since yesterday, max rate seen 110s <Keron De La VegaANGELA Landry - Last Filed: 05/16/20 12:26> Subjective Date/time seen: 05/16/20 12:16 patient states she is feeling really good today. She is eager to go home however she does not want to go home today. Patient states she was able to the get up and walk to the restroom with little difficulty other than finger a little bit off balance. States that her appetite is good and she was able to eat most of her meals today. Patient denies any other pains or problems at this time <Keron CeferinoANGELA Landry - Last Filed: 05/16/20 12:26> Review of Systems Constitutional: Constitutional: Reports no additional constitutional complaints, Denies body ache(s), Denies chills and Denies weakness <ANGELA Sutherland - Last Filed: 05/16/20 12:26> Cardiovascular: Cardiovascular: Reports no additional cardiovascular complaints, Denies chest pain, Denies chest pain at rest and Denies chest pain with activity <ANGELA Sutherland - Last Filed: 05/16/20 12:
[2020-05-16 16:25] VITALS: BP 115/48; PULSE 89; RESP 18; TEMP 37.1; O2SAT 96
[2020-05-16 20:00] VITALS: BP 128/60; PULSE 85; PULSE 92; RESP 18; TEMP 36.6
[2020-05-16] MEDS: CEFDINIR 300 MG CAPSULE PO (20:57)
[2020-05-17] VITALS: BP 117/53; PULSE 86; PULSE 88; RESP 18; TEMP 37.2; O2SAT 95
[2020-05-17 04:00] VITALS: BP 111/39; PULSE 84; PULSE 85; RESP 18; TEMP 36.6; O2SAT 96
[2020-05-17 07:30] VITALS: BP 105/62; PULSE 96; RESP 18; TEMP 36.5; O2SAT 97
[2020-05-17 08:00] VITALS: PULSE 96
[2020-05-17] MEDS: ENOXAPARIN 30 MG/0.3 ML SYRINGE SUB-Q (09:17)
[2020-05-17] MEDS: CEFDINIR 300 MG CAPSULE PO (09:18)
[2020-05-17] MEDS: FERROUS SULFATE 324 MG TABLET PO (09:18)
[2020-05-17 12:00] VITALS: PULSE 91; PULSE 95; RESP 18; TEMP 36.6; O2SAT 95
[2020-05-17 12:23] LABS: Occult Blood POSITIVE (Negative)
--- NOTE | 2020-05-17 12:36 | PM.DS ---
DS: Admitting Diagnosis Admitting Diagnosis Admitting Diagnosis: Weakness DS: Discharge Diagnosis Discharge Diagnosis (1) UTI (urinary tract infection): Qualifiers: Hematuria presence: without hematuria Urinary tract infection type: site unspecified Qualified Code(s): N39.0 - Urinary tract infection, site not specified Code(s): N39.0 - Urinary tract infection, site not specified Status: Acute Assessment and Plan: UA culture shows the growth of E. coli patient currently taking cefdinir Patient with the growth of E. coli and blood culture (2) Anemia: Code(s): D64.9 - Anemia, unspecified Status: Acute Assessment and Plan: Possibly secondary to iron deficiency anemia versus blood loss versus acute kidney injury Occult blood positive on 05/17/2020 Continue iron supplement Patient's hemoglobin baseline appears to be 8.9. Today patient's hemoglobin 7.8 Will continue to monitor patient's hemoglobin hematocrit and transfuse if needed Type and screen ordered for the a.m. (3) Acute kidney injury: Code(s): N17.9 - Acute kidney failure, unspecified Status: Resolved Assessment and Plan: Patient baseline creatinine appears to be 0.90-1.00, on admission patient's creatinine at 1.70 currently 1.40 improving Will continue to monitor patient's renal function Renal dose medication Avoid nephrotoxic (4) CHF (congestive heart failure): Code(s): I50.9 - Heart failure, unspecified Status: Acute Assessment and Plan: (5) Skin tear: Status: Acute Assessment and Plan: Removed 4 sutures from patient's left lower extremity (6) Altered mental status: Qualifiers: Altered mental status type: unspecified Qualified Code(s): R41.82 - Altered mental status, unspecified Code(s): R41.82 - Altered mental status, unspecified Status: Acute Assessment and Plan: Improving Treat underlying condition UTI versus acute kidney injury Patient appears to sundown will remain in swing bed for further evaluation (7) Bacteremia due to Escherichia coli: Code(s): R78.81 - Bacteremia; B96.20 - Unspecified Escherichia coli [E. coli] as the cause of diseases classified elsewhere Status: Acute Assessment and Plan: Blood culture indicates the growth of E. coli Continue cefdinir DS: Summary Time Spent with Patient Time attestation: Total time spent providing and/or coordinating discharge services: DS: Data Data Completed and Pending Labs on day of discharge: Labs from last 24 hours 05/17/20 10:13 Stool Occult Blood Positive Discharge Plan Discharge Attending physician on discharge: Caleb Garcia Discharging Clinician: Elia Ferrari Anticipated Discharge Date/Time: 05/17/20 08:27 Patient Disposition: Hospital Swing Bed Activity: as tolerated Diet: heart healthy Patient Instructions: Antibiotic Form Stand Alone Forms: General Discharge Information Discharge Medications: New cefdinir 300 mg Capsule 300 mg PO Q12HR 10 Days Qty: 20 RF: 0 Continued ibuprofen 800 mg Tablet 800 mg PO TID PRN (Reason: Pain) RF: 0 lisinopril 20 mg Tablet 20 mg PO DAILY RF: 0 potassium chloride 20 mEq Packet 20 meq PO DAILY RF: 0 ferrous sulfate 324 mg (65 mg iron) tablet,delayed release (DR/EC) 324 mg PO DAILY Qty: 30 RF: 0 Date of admission: 05/14/20 23:30 Primary Care Provider: Elliot,Cosmo Spencer Admitting Provider: Augustine Campa Attending physician on admission: Augustine Campa Condition: Stable Quality VTE Prophylaxis VTE prophylaxis: pharmacologic ordered (Lovenox)
--- NOTE | 2020-05-17 12:40 | PC.NURSE ---
Patient discharged from inpatient status, admitted as skilled swing bed.
--- NOTE | 2020-06-05 11:51 | PC.NURSE ---
Pt states she received and understood her discharge instructions. Pt also states it was all very nice when asked about her care.
== END 2020-05-17 12:40 | disposition swing bed (61) | DRG 690 ==
PROVIDERS: Nurse Practitioner Family; Admitting Provider Emergency Medicine; PCP Internal Medicine; Visit Provider Emergency Medicine
DX: N39.0 Urinary tract infection, site not specified (principal); R78.81 Bacteremia; N17.9 Acute kidney failure, unspecified; I11.0 Hypertensive heart disease with heart failure; I50.9 Heart failure, unspecified; D64.9 Anemia, unspecified; B96.20 Unspecified Escherichia coli [E. coli] as the cause of diseases classified elsewhere; S81.812D Laceration without foreign body, left lower leg, subsequent encounter; I49.1 Atrial premature depolarization
CPT/HCPCS: 36415; 80048; 80053; 82550; 83880; 84484; 85014; 85018; 85025; 93005; 97161; 97165; 97530; A9270; J0696; J1650; J7030

== ENCOUNTER 2020-05-17 12:46 | Inpatient (IN) | payer MEDICARE, SELFPAY ==
[2020-05-17 13:00] VITALS: BMI 21.5
--- NOTE | 2020-05-17 13:04 | ADMGEN ---
This patient, Izabela Moreno, was admitted to 2nd Floor Room 205-2. Patient/family oriented to hospital policies and general routines including ID bracelet, bed and alarms, visiting hours, pain management, procedures, bathroom and other care routines, personal items, smoking policy, room service/diet, and visiting hours. Information on how to activate the Rapid Response Team has been discussed. Patient/Family are encouraged to report perceived risks to care and to ask questions if they do not understand what they are told or what they should do.
[2020-05-17 16:45] VITALS: BP 112/56; PULSE 96; RESP 18; TEMP 36.8; O2SAT 98
[2020-05-17] MEDS: CEFDINIR 300 MG CAPSULE PO (20:10)
--- NOTE | 2020-05-17 22:23 | PC.NURSE ---
pt sleeping, no distress noted
[2020-05-17 23:12] VITALS: BP 118/60; PULSE 87; RESP 18; TEMP 37; O2SAT 98
[2020-05-18 08:00] VITALS: BP 122/55; PULSE 86; RESP 18; TEMP 36.6; O2SAT 98
--- NOTE | 2020-05-18 08:16 | WPDREHABHP ---
H&P: HPI History of Present Illness Date/Time: 05/17/2020 08:16 Chief complaint: Weakness Narrative: Izabela Moreno is a 80 year old female that was admitted to this hospital on 05/15/2024 after being transferred from [facility] emergency department for urinary tract infection. Patient lives at home alone and is unable to care for herself at this time of discharge she will transition to a swing bed. Patient admitted in swing bed for rehabilitation due to decreased balance decreased mobility in severe limited function endurant and/or mobility. Patient has no complaints at this time. The patient denies SOB, CP, palpitation, extremity numbness, lightheadedness, dizziness, constipation, diarrhea, chills, or fever. Review of Systems Review of Systems All systems reviewed & are unremarkable except as noted in HPI and below (10 point system review) [facility] Past Medical History Medical History Hypertension Surgical History Surgical History History of hip surgery ORIF right hip fracture Family History Family History Other Hypertension Social History Social History Social History: Surrogate decision maker: Savanna Nuno, niece. She does not have a power of contracts attorney. Code status: Full code. Smoking status: Never smoker Second hand tobacco smoke exposure: No Alcohol intake: never Substance use: never Substance use type: does not use Additional living arrangements comments: Resides in her own home in [place]. She has no children. 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 Gender identity (if verbalized by the patient): Female Sexual Orientation (if Verbalized by the Patient): Straight or Heterosexual Spiritual care concerns: No Meds Home Medications and Allergies Home Medications Medication Instructions Recorded Confirmed Type ibuprofen 800 mg PO TID PRN 05/05/20 05/17/20 History lisinopril 20 mg PO DAILY 05/05/20 05/17/20 History potassium chloride 20 meq PO DAILY 05/05/20 05/17/20 History ferrous sulfate 324 mg PO DAILY #30 tablet 05/09/20 05/17/20 Rx cefdinir 300 mg PO Q12HR 10 Days #20 cap 05/17/20 05/17/20 Rx Allergies Allergy/AdvReac Type Severity Reaction Status Date / Time No Known Allergies Allergy Verified 05/14/20 15:24 Vital Signs Vital Signs - 24 hr 05/20/20 15:55 05/20/20 23:15 Temperature 97.9 F 98.2 F Pulse Rate 82 80 Respiratory Rate 18 18 Blood Pressure 116/47 L 127/59 L Pulse Oximetry 97 97 Exam Narrative Exam Narrative: GENERAL: This is a well-nourished, well-developed patient, in no apparent distress. HEAD: normocephalic, atraumatic. EYES: PERRL. Sclera clear/white. Vision is grossly intact. EARS: External ears normal, auditory canals clear and without drainage, TMs normal without perforation. Hearing grossly intact. NOSE: External nose normal with no obvious nasal discharge, nares without redness, no rhinorrhea. THROAT: Mucous membranes moist, posterior pharynx clear. NECK: Neck supple, non-tender without lymphadenopathy, masses or thyromegaly. CARDIOVASCULAR: Regular rate and rhythm without murmurs, gallops, or rubs. RESPIRATORY: Clear to auscultation. Breath sounds equal bilaterally. No wheezes, rales, or rhonchi. GASTROINTESTINAL: Abdomen soft, non-tender, nondistended. Bowel sounds are active. No hepato-splenomegaly, or palpable masses. No guarding. SKIN: warm, intact with no suspicious lesions or rash, good texture and turgor. NEURO: awake, alert, and oriented to person, occasional confusion EXTREMITIES: Normal range of motion. No edema. No calf tenderness. Negative Homans sign bilaterally. BACK: Nontender without deformity or crepitance. No flank tenderness. Assessment and Plan
[2020-05-18] MEDS: POTASSIUM CHLORIDE 20 MEQ PACKET (FOR LIQUID) PO (10:13)
[2020-05-18] MEDS: lisinopriL 20 MG TABLET PO (10:13)
[2020-05-18] MEDS: DOCUSATE SODIUM 100 MG CAPSULE PO ×2 (10:14→18:08)
[2020-05-18] MEDS: CEFDINIR 300 MG CAPSULE PO ×2 (10:14→21:06)
[2020-05-18] MEDS: FERROUS SULFATE 324 MG TABLET PO (10:14)
[2020-05-18 16:00] VITALS: BP 110/50; PULSE 78; RESP 20; TEMP 36.6; O2SAT 98
[2020-05-18] MEDS: ENOXAPARIN 40 MG/0.4 ML SYRINGE SUB-Q (18:08)
[2020-05-18] MEDS: ACETAMINOPHEN 325 MG TABLET 650 MG PO (21:06)
[2020-05-18] MEDS: LORazepam (*CRX) 0.5 MG TABLET PO (21:07)
--- NOTE | 2020-05-18 21:30 | PC.NURSE ---
Patient was on phone with family regarding staying in hospital, nursing homes and returning home. Anxious and agitated. PRN lorazapam given.
[2020-05-19] VITALS: BP 137/55; PULSE 79; RESP 16; TEMP 36.4; O2SAT 98
[2020-05-19 08:00] VITALS: BP 145/53; PULSE 82; RESP 18; TEMP 36.3; O2SAT 99
[2020-05-19] MEDS: lisinopriL 20 MG TABLET PO (09:04)
[2020-05-19] MEDS: CEFDINIR 300 MG CAPSULE PO ×2 (09:04→20:41)
[2020-05-19] MEDS: POTASSIUM CHLORIDE 20 MEQ PACKET (FOR LIQUID) PO (09:04)
[2020-05-19] MEDS: FERROUS SULFATE 324 MG TABLET PO (09:04)
[2020-05-19] MEDS: DOCUSATE SODIUM 100 MG CAPSULE PO ×2 (09:04→16:35)
[2020-05-19 16:00] VITALS: BP 118/58; PULSE 78; RESP 18; TEMP 36.6; O2SAT 95
[2020-05-19] MEDS: ENOXAPARIN 40 MG/0.4 ML SYRINGE SUB-Q (16:34)
[2020-05-19] MEDS: ACETAMINOPHEN 325 MG TABLET 650 MG PO (20:44)
[2020-05-20] VITALS: BP 125/74; PULSE 69; RESP 16; TEMP 36.2; O2SAT 98
[2020-05-20 05:25] LABS: Hematocrit 24.4 % (35.0-42.0); Hemoglobin 7.5 g/dL (11.7-13.8); Mean Corpuscular HGB Conc 30.7 g/dL (32.0-36.0); Mean Corpuscular Hemoglobin 28.8 pg (27.0-31.0); Mean Corpuscular Volume 93.8 fL (78.0-102.0); Mean Platelet Volume 11.3 fl (9.2-11.8); Platelet Count Result 372 K/mm3 (150-420); Red Cell Distribution Width 16.3 % (11.6-14.4); White Blood Count 7.4 K/mm3 (4.8-10.8)
[2020-05-20 05:27] LABS: Anion Gap 10 mmol/L (8-16); Blood Urea Nitrogen 25 mg/dL (7-18); Calcium 8.6 mg/dL (8.5-10.1); Carbon Dioxide 25 mmol/L (21-32); Chloride 106 mmol/L (98-108); Estimated CRCL calculation 35 ml/min; Estimated Glomerular Filt Rate 53; Glucose 83 mg/dL (70-99); Osmolality Calculated 295 mOsm/kg (285-295); Potassium 4.3 mmol/L (3.5-5.1); Sodium 141 mmol/L (136-145)
[2020-05-20 07:54] VITALS: BP 123/49; PULSE 76; RESP 18; TEMP 36.2; O2SAT 95
[2020-05-20] MEDS: POTASSIUM CHLORIDE 20 MEQ PACKET (FOR LIQUID) PO (08:40)
[2020-05-20] MEDS: lisinopriL 20 MG TABLET PO (08:40)
[2020-05-20] MEDS: CEFDINIR 300 MG CAPSULE PO ×2 (08:40→21:17)
[2020-05-20] MEDS: FERROUS SULFATE 324 MG TABLET PO (08:40)
[2020-05-20] MEDS: DOCUSATE SODIUM 100 MG CAPSULE PO ×2 (08:40→17:27)
--- NOTE | 2020-05-20 08:50 | PC.NURSE ---
SBA and use of walker to get from chair to bathroom, tolerated activity well, can do own toileting
--- NOTE | 2020-05-20 11:03 | PC.NURSE ---
remains in chair, denies needs at this tiem
[2020-05-20 15:55] VITALS: BP 116/47; PULSE 82; RESP 18; TEMP 36.6; O2SAT 97
[2020-05-20 23:15] VITALS: BP 127/59; PULSE 80; RESP 18; TEMP 36.8; O2SAT 97
[2020-05-21 07:15] VITALS: BP 127/49; PULSE 78; RESP 18; TEMP 36.4; O2SAT 99
[2020-05-21] MEDS: DOCUSATE SODIUM 100 MG CAPSULE PO ×2 (09:13→17:20)
[2020-05-21] MEDS: lisinopriL 20 MG TABLET PO (09:13)
[2020-05-21] MEDS: POTASSIUM CHLORIDE 20 MEQ PACKET (FOR LIQUID) PO (09:13)
[2020-05-21] MEDS: CEFDINIR 300 MG CAPSULE PO ×2 (09:13→21:26)
[2020-05-21] MEDS: FERROUS SULFATE 324 MG TABLET PO (09:14)
--- NOTE | 2020-05-21 12:03 | P.PN_ITS ---
Progress Note: A&P Assessment and Plan (1) UTI (urinary tract infection): Qualifiers: Hematuria presence: without hematuria Urinary tract infection type: site unspecified Qualified Code(s): N39.0 - Urinary tract infection, site not specified <Elia Ferrari TECHNOLOGY RESOURCE TEACHER-C - Last Filed: 05/21/20 12:10> Code(s): N39.0 - Urinary tract infection, site not specified <Elia Wade Vega JASPERC - Last Filed: 05/21/20 12:10> Status: Acute <Elia TinocoKarey Vega TECHNOLOGY RESOURCE TEACHERManoharC - Last Filed: 05/21/20 12:10> Assessment and Plan: * UA culture shows the growth of E. coli patient currently taking cefdinir complete on 05/24/2020 * Patient with the growth of E. coli and blood culture <EfrainSONALI Romero - Last Filed: 05/21/20 12:10> (2) Anemia: Code(s): D64.9 - Anemia, unspecified <Elia TinocoKarey Ferrari TECHNOLOGY RESOURCE TEACHER-C - Last Filed: 05/21/20 12:10> Status: Acute <Efrainpeng TinocoKarey Ferrari JASPERColeman - Last Filed: 05/21/20 12:10> Assessment and Plan: * Possibly secondary to iron deficiency anemia versus blood loss versus acute kidney injury * Occult blood positive on 05/17/2020 * Continue iron supplement * Patient's hemoglobin baseline appears to be 8.9. Today patient's hemoglobin 7.5, not much change * Will continue to monitor patient's hemoglobin hematocrit and transfuse if needed <SONALI Montalvo - Last Filed: 05/21/20 12:10> (3) Acute kidney injury: Code(s): N17.9 - Acute kidney failure, unspecified <Elia Ferrari TECHNOLOGY RESOURCE TEACHER-Coleman - Last Filed: 05/21/20 12:10> Status: Resolved <SONALI Montalvo - Last Filed: 05/21/20 12:10> Assessment and Plan: * Patient baseline creatinine appears to be 0.90-1.00, on admission patient's creatinine at 1.70 currently 1.01 improving * Will continue to monitor patient's renal function * Renal dose medication * Avoid nephrotoxic <JACK Montalvo-C - Last Filed: 05/21/20 12:10> (4) CHF (congestive heart failure): Code(s): I50.9 - Heart failure, unspecified <JACK Montalvo-C - Last Filed: 05/21/20 12:10> Status: Acute <SONALI Montalvo - Last Filed: 05/21/20 12:10> Assessment and Plan: * Compensated * Will closely monitor patient for fluid overload <JASPER MontalvoC - Last Filed: 05/21/20 12:10> (5) Weakness: Code(s): R53.1 - Weakness <SONALI Montalvo - Last Filed: 05/21/20 12:10> Status: Acute <SONALI Montalvo - Last Filed: 05/21/20 12:10> Assessment and Plan: Exhibit tolerance during physical activity as evidenced by a normal fluc tuation of vital signs during physical activity. ? Patient will be ability to perform required activities of daily living. ? Provide appropriate nutrition for healing and strength. ? Use appropriate to prevent falls. ? Continue physical therapy/occupational therapy. <SONALI Montalvo - Last Filed: 05/21/20 12:10> (6) Frequent falls: Code(s): R29.6 - Repeated falls <Elia Ferrari SONALI - Last Filed: 05/21/20 12:10> Status: Acute <Elia Ferrari SONALI - Last Filed: 05/21/20 12:10> Assessment and Plan: * Secondary to urinary tract infection versus dementia <Elia Ferrari JASPERC - Last Filed: 05/21/20 12:10> (7) Skin tear: Status: Acute <Elia Ferrari SONALI - Last Filed: 05/21/20 12:10> Assessment and Plan: * Removed 4 sutures from patient's left lower extremity * Continue skin care as ordered <Elia Ferrari SONALI - Last Filed:
--- NOTE | 2020-05-21 12:03 | WPDPN ---
Progress Note: A&P Assessment and Plan (1) UTI (urinary tract infection): Qualifiers: Hematuria presence: without hematuria Urinary tract infection type: site unspecified Qualified Code(s): N39.0 - Urinary tract infection, site not specified <JASPER MontalvoC - Last Filed: 05/21/20 12:10> Code(s): N39.0 - Urinary tract infection, site not specified <JACK Montalvo-C - Last Filed: 05/21/20 12:10> Status: Acute <JASPER MontalvoC - Last Filed: 05/21/20 12:10> Assessment and Plan: UA culture shows the growth of E. coli patient currently taking cefdinir complete on 05/24/2020 Patient with the growth of E. coli and blood culture <JASPER MontalvoC - Last Filed: 05/21/20 12:10> (2) Anemia: Code(s): D64.9 - Anemia, unspecified <JASPER MontalvoC - Last Filed: 05/21/20 12:10> Status: Acute <JASPER MontalvoC - Last Filed: 05/21/20 12:10> Assessment and Plan: Possibly secondary to iron deficiency anemia versus blood loss versus acute kidney injury Occult blood positive on 05/17/2020 Continue iron supplement Patient's hemoglobin baseline appears to be 8.9. Today patient's hemoglobin 7.5, not much change Will continue to monitor patient's hemoglobin hematocrit and transfuse if needed <SONALI Montalvo - Last Filed: 05/21/20 12:10> (3) Acute kidney injury: Code(s): N17.9 - Acute kidney failure, unspecified <JACK Montalvo-C - Last Filed: 05/21/20 12:10> Status: Resolved <SONALI Montalvo - Last Filed: 05/21/20 12:10> Assessment and Plan: Patient baseline creatinine appears to be 0.90-1.00, on admission patient's creatinine at 1.70 currently 1.01 improving Will continue to monitor patient's renal function Renal dose medication Avoid nephrotoxic <SONALI Montalvo - Last Filed: 05/21/20 12:10> (4) CHF (congestive heart failure): Code(s): I50.9 - Heart failure, unspecified <Elia Ferrari JASPERC - Last Filed: 05/21/20 12:10> Status: Acute <Elia Ferrari JACK-C - Last Filed: 05/21/20 12:10> Assessment and Plan: Compensated Will closely monitor patient for fluid overload <Elia Ferrari JASPERC - Last Filed: 05/21/20 12:10> (5) Weakness: Code(s): R53.1 - Weakness <Elia Ferrari JACK-C - Last Filed: 05/21/20 12:10> Status: Acute <Elia Ferrari JASPERC - Last Filed: 05/21/20 12:10> Assessment and Plan: Exhibit tolerance during physical activity as evidenced by a normal fluctuation of vital signs during physical activity. ? Patient will be ability to perform required activities of daily living. ? Provide appropriate nutrition for healing and strength. ? Use appropriate to prevent falls. ? Continue physical therapy/occupational therapy. <Elia Ferrari JASPERC - Last Filed: 05/21/20 12:10> (6) Frequent falls: Code(s): R29.6 - Repeated falls <Elia Ferrari JASPERC - Last Filed: 05/21/20 12:10> Status: Acute <Elia Ferrari JASPERC - Last Filed: 05/21/20 12:10> Assessment and Plan: Secondary to urinary tract infection versus dementia <Elia Ferrari JACK-C - Last Filed: 05/21/20 12:10> (7) Skin tear: Status: Acute <Elia Ferrari JACK-C - Last Filed: 05/21/20 12:10> Assessment and Plan: Removed 4 sutures from patient's left lower extremity Continue skin care as ordered <Elia Ferrari JACK-C - Last Filed: 05/21/20 12:10> (8) Altered mental status: Qualifiers: Altered mental status type: unspecified Qualified Code(s): R41.82 - Altered mental status, unspecified <SONALI Montalvo - Last Filed: 05/21/20 12:10> Code(s): R41.82 - Altered mental status, unspecified <SONALI Montalvo - Last Filed: 05/21/20 12:10> Status:
[2020-05-21 15:45] VITALS: BP 138/44; PULSE 83; RESP 18; TEMP 36.8; O2SAT 97
[2020-05-22] VITALS: BP 125/58; PULSE 81; RESP 16; TEMP 36.8; O2SAT 97
--- NOTE | 2020-05-22 07:49 | PC.NURSE ---
Up to chair per OT dept for breakfast, washed up , tolerated well
[2020-05-22 07:50] VITALS: BP 121/70; PULSE 72; RESP 18; TEMP 36.6; O2SAT 97
[2020-05-22] MEDS: POTASSIUM CHLORIDE 20 MEQ PACKET (FOR LIQUID) PO (08:55)
[2020-05-22] MEDS: FERROUS SULFATE 324 MG TABLET PO (08:56)
[2020-05-22] MEDS: lisinopriL 20 MG TABLET PO (08:56)
[2020-05-22] MEDS: CEFDINIR 300 MG CAPSULE PO ×2 (08:56→20:35)
[2020-05-22] MEDS: DOCUSATE SODIUM 100 MG CAPSULE PO ×2 (08:56→16:56)
[2020-05-22 15:46] VITALS: BP 103/53; PULSE 80; RESP 18; TEMP 36.6; O2SAT 95
--- NOTE | 2020-05-22 15:52 | PC.NURSE ---
Dressing change completed to left arm skin tear, minimal drge on old dressing yellow drge to clean wound, wound bed pink, no edema noted, hammad telfa to wound and secured with conform and tape
--- NOTE | 2020-05-22 17:00 | PC.NURSE ---
Assisted from bed to bathroom, then to chair for dinner, ambulated with use of walker and SBA, tolerated well
--- NOTE | 2020-05-22 18:46 | PC.NURSE ---
SBA and use of walker, up from chair walked to bathroom, then walked to bed, side rails up and call light in reach of patient, reminded to call for assist up
[2020-05-23] VITALS: BP 120/66; PULSE 78; RESP 18; TEMP 36.7; O2SAT 98
[2020-05-23 08:00] VITALS: BP 128/58; PULSE 78; RESP 18; TEMP 36.6; O2SAT 94
[2020-05-23] MEDS: DOCUSATE SODIUM 100 MG CAPSULE PO ×2 (08:46→16:59)
[2020-05-23] MEDS: lisinopriL 20 MG TABLET PO (08:46)
[2020-05-23] MEDS: CEFDINIR 300 MG CAPSULE PO ×2 (08:46→21:08)
[2020-05-23] MEDS: FERROUS SULFATE 324 MG TABLET PO (08:46)
[2020-05-23] MEDS: POTASSIUM CHLORIDE 20 MEQ PACKET (FOR LIQUID) PO (08:46)
[2020-05-23 14:33] VITALS: BMI 19.4
[2020-05-23 14:35] VITALS: BP 128/74; PULSE 78; RESP 18; TEMP 36.6; O2SAT 92
[2020-05-23 16:00] VITALS: BP 128/74; PULSE 74; RESP 18; TEMP 36.1; O2SAT 96
[2020-05-23] MEDS: ACETAMINOPHEN 325 MG TABLET 650 MG PO (21:08)
[2020-05-23 23:15] VITALS: BP 119/53; PULSE 76; RESP 18; TEMP 36.6; O2SAT 97
--- NOTE | 2020-05-24 01:30 | PC.NURSE ---
Patient asleep. No apparent distress. Call light and needed items within reach.
--- NOTE | 2020-05-24 06:11 | PC.NURSE ---
Patient sleeping. No apparent distress. Call light and needed items within reach.
[2020-05-24 07:30] VITALS: BP 119/49; PULSE 76; RESP 16; TEMP 35.9; O2SAT 97
[2020-05-24] MEDS: CEFDINIR 300 MG CAPSULE PO ×2 (09:10→20:37)
[2020-05-24] MEDS: lisinopriL 20 MG TABLET PO (09:11)
[2020-05-24] MEDS: POTASSIUM CHLORIDE 20 MEQ PACKET (FOR LIQUID) PO (09:11)
[2020-05-24] MEDS: FERROUS SULFATE 324 MG TABLET PO (09:11)
[2020-05-24] MEDS: DOCUSATE SODIUM 100 MG CAPSULE PO ×2 (09:11→16:47)
[2020-05-24 15:38] VITALS: BP 101/46; PULSE 86; RESP 18; TEMP 36.4; O2SAT 99
[2020-05-24] MEDS: ACETAMINOPHEN 325 MG TABLET 650 MG PO (20:37)
[2020-05-25] VITALS: PULSE 48; RESP 20; TEMP 36.6; O2SAT 98
[2020-05-25 07:45] VITALS: BP 127/49; PULSE 75; RESP 18; TEMP 36.1; O2SAT 95
--- NOTE | 2020-05-25 07:50 | PC.NURSE ---
SBA up from bed, no assistance needed, ambulatory to bathroom with walker and SBA, to call when finished,
--- NOTE | 2020-05-25 08:00 | PC.NURSE ---
Did not call for assist to get back to bed, found sitting on edge of bed with walker in front of her, no injury, reminded to call for assistance with all acitvity for safety, verbalizes understanding but will need frequent reminding
[2020-05-25] MEDS: FERROUS SULFATE 324 MG TABLET PO (08:47)
[2020-05-25] MEDS: lisinopriL 20 MG TABLET PO (08:47)
[2020-05-25] MEDS: POTASSIUM CHLORIDE 20 MEQ PACKET (FOR LIQUID) PO (08:47)
[2020-05-25] MEDS: DOCUSATE SODIUM 100 MG CAPSULE PO ×2 (08:48→17:01)
--- NOTE | 2020-05-25 11:10 | PC.NURSE ---
Resting in bed at this time, denies needs
--- NOTE | 2020-05-25 12:45 | PC.NURSE ---
Remains in chair at this time, legs elevated, personal items in reach, call light in reach
[2020-05-25 15:22] VITALS: BP 92/40; PULSE 80; RESP 18; TEMP 36.2; O2SAT 95
--- NOTE | 2020-05-25 18:16 | PC.NURSE ---
Up to void, did not call for assist until in bathroom, gait steady, reminded to call first, using walker appropriately, back to bed with side rails up and call light in reach of patient
[2020-05-25 23:48] VITALS: BP 118/42; PULSE 74; RESP 18; TEMP 36.4; O2SAT 96
[2020-05-26 07:32] VITALS: BP 120/49; PULSE 72; RESP 14; TEMP 36.4; O2SAT 96
[2020-05-26] MEDS: FERROUS SULFATE 324 MG TABLET PO (08:06)
[2020-05-26] MEDS: POTASSIUM CHLORIDE 20 MEQ PACKET (FOR LIQUID) PO (08:06)
[2020-05-26] MEDS: lisinopriL 20 MG TABLET PO (08:06)
[2020-05-26] MEDS: DOCUSATE SODIUM 100 MG CAPSULE PO (08:06)
[2020-05-26 16:00] VITALS: BP 116/68; PULSE 68; RESP 18; TEMP 36.8; O2SAT 97
[2020-05-26 23:24] VITALS: BP 105/41; PULSE 72; RESP 20; TEMP 36.4; O2SAT 95
[2020-05-27 08:00] VITALS: BP 102/47; PULSE 96; RESP 18; TEMP 36.4; O2SAT 95
[2020-05-27] MEDS: POTASSIUM CHLORIDE 20 MEQ PACKET (FOR LIQUID) PO (08:57)
[2020-05-27] MEDS: DOCUSATE SODIUM 100 MG CAPSULE PO ×2 (08:58→16:47)
[2020-05-27] MEDS: FERROUS SULFATE 324 MG TABLET PO (08:58)
[2020-05-27 15:23] VITALS: BP 106/43; PULSE 88; RESP 18; TEMP 36.9; O2SAT 97
[2020-05-27 23:20] VITALS: BP 116/40; PULSE 75; RESP 18; TEMP 36.5; O2SAT 97
[2020-05-28 06:05] LABS: Hematocrit 28.4 % (35.0-42.0); Hemoglobin 8.6 g/dL (11.7-13.8); Mean Corpuscular HGB Conc 30.3 g/dL (32.0-36.0); Mean Corpuscular Hemoglobin 29.1 pg (27.0-31.0); Mean Corpuscular Volume 95.9 fL (78.0-102.0); Platelet Count Result 438 K/mm3 (150-420); Red Blood Count 2.96 M/mm3 (4.20-5.40); Red Cell Distribution Width 16.2 % (11.6-14.4); White Blood Count 6.5 K/mm3 (4.8-10.8)
[2020-05-28 06:23] LABS: Alanine Aminotransferase 17 U/L (14-59); Albumin Level 2.8 g/dL (3.4-5.0); Alkaline Phosphatase 93 U/L (46-116); Anion Gap 10 mmol/L (8-16); Aspartate Amino Transferase 10 U/L (15-37); Bilirubin,Total 0.2 mg/dL (0.00-1.00); Blood Urea Nitrogen 44 mg/dL (7-18); Calcium 9.1 mg/dL (8.5-10.1); Carbon Dioxide 24 mmol/L (21-32); Chloride 107 mmol/L (98-108); Estimated CRCL calculation 27 ml/min; Estimated Glomerular Filt Rate 41; Glucose 84 mg/dL (70-99); Osmolality Calculated 302 mOsm/kg (285-295); Potassium 5.3 mmol/L (3.5-5.1); Sodium 141 mmol/L (136-145); Total Protein 6.2 g/dL (6.4-8.2)
--- NOTE | 2020-05-28 07:53 | P.DS_ITS ---
DS: Admitting Diagnosis Admitting Diagnosis Admitting Diagnosis: Weakness <Keron De La VegaGURPREET LandryC - Last Filed: 05/28/20 11:09> DS: Discharge Diagnosis Discharge Diagnosis (1) UTI (urinary tract infection): Qualifiers: Hematuria presence: without hematuria Urinary tract infection type: site unspecified Qualified Code(s): N39.0 - Urinary tract infection, site not specified <Keron CeferinoKarey Ochoa APN-C - Last Filed: 05/28/20 11:09> Code(s): N39.0 - Urinary tract infection, site not specified <Keron De La VegaKarey Ochoa APN-C - Last Filed: 05/28/20 11:09> Status: Acute <Keron CeferinoKarey Ochoa APN-C - Last Filed: 05/28/20 11:09> Assessment and Plan: * UA culture shows the growth of E. coli patient currently taking cefdinir complete on 05/24/2020 * Patient with the growth of E. coli and blood culture 05/28/2020 patient has completed course of antibiotics as noted above, patient will need to follow-up with his primary care provider 1 week of discharge <GURPREET SutherlandC - Last Filed: 05/28/20 11:09> (2) Anemia: Code(s): D64.9 - Anemia, unspecified <Keron CeferinoKarey Ochoa APN-C - Last Filed: 05/28/20 11:09> Status: Acute <Keron De La VegaKarey Ochoa APN-C - Last Filed: 05/28/20 11:09> Assessment and Plan: * Possibly secondary to iron deficiency anemia versus blood loss versus acute kidney injury * Occult blood positive on 05/17/2020 * Continue iron supplement * Patient's hemoglobin baseline appears to be 8.9. Today patient's hemoglobin 7.5, not much change * Will continue to monitor patient's hemoglobin hematocrit and transfuse if needed 05/28/2020 anemia appears stable at 8.6/28.4 <Keron Ochoa APN-C - Last Filed: 05/28/20 11:09> (3) Acute kidney injury: Code(s): N17.9 - Acute kidney failure, unspecified <Keron Ochoa APN-C - Last Filed: 05/28/20 11:09> Status: Resolved <Keron Freedman GURPREET OchoaC - Last Filed: 05/28/20 11:09> Assessment and Plan: * Patient baseline creatinine appears to be 0.90-1.00, on admission patient's creatinine at 1.70 currently 1.01 improving * Will continue to monitor patient's renal function * Renal dose medication * Avoid nephrotoxic 05/28/2020 BUN creatinine 44/1.25, potassium was 5.3 decreased lisinopril from 20 to 10 mg, potassium was 5.3 this morning will discontinue daily potassium h ome medication and have patient follow-up with primary care provider within 1 week <Keron CeferinoGURPREET LandryC - Last Filed: 05/28/20 11:09> (4) CHF (congestive heart failure): Code(s): I50.9 - Heart failure, unspecified <Keron CeferinoKarey Ochoa APN-C - Last Filed: 05/28/20 11:09> Status: Acute <Keron De La VegaGURPREET LandryC - Last Filed: 05/28/20 11:09> Assessment and Plan: * Compensated * Will closely monitor patient for fluid overload 05/28/2020 vital signs stable, lungs clear, scant edema bilateral lower extremities <Keron CeferinoKarey Ochoa APN-C - Last Filed: 05/28/20 11:09> (5) Weakness: Code(s): R53.1 - Weakness <Keron De La VegaKarey Ochoa APN-C - Last Filed: 05/28/20 11:09> Status: Acute <Keron CeferinoKarey Ochoa APN-Coleman - Last Filed: 05/28/20 11:09> Assessment and Plan: Exhibit tolerance during physical activity as evidenced by a normal fluctuation of vital signs during physical activity. ? Patient will be ability to perform required activities of daily living. ? Provide appropriate nutrition for healing and strength. ? Use appropriate to prevent falls. ? Continue physical therapy/occupational therapy. 05/28/2020 will discharge p
--- NOTE | 2020-05-28 07:53 | PM.DS ---
DS: Admitting Diagnosis Admitting Diagnosis Admitting Diagnosis: Weakness <ANGELA Sutherland - Last Filed: 05/28/20 11:09> DS: Discharge Diagnosis Discharge Diagnosis (1) UTI (urinary tract infection): Qualifiers: Hematuria presence: without hematuria Urinary tract infection type: site unspecified Qualified Code(s): N39.0 - Urinary tract infection, site not specified <GURPREET SutherlandC - Last Filed: 05/28/20 11:09> Code(s): N39.0 - Urinary tract infection, site not specified <GURPREET SutherlandC - Last Filed: 05/28/20 11:09> Status: Acute <ANGELA Sutherland - Last Filed: 05/28/20 11:09> Assessment and Plan: UA culture shows the growth of E. coli patient currently taking cefdinir complete on 05/24/2020 Patient with the growth of E. coli and blood culture 05/28/2020 patient has completed course of antibiotics as noted above, patient will need to follow-up with his primary care provider 1 week of discharge <ANGELA Sutherland - Last Filed: 05/28/20 11:09> (2) Anemia: Code(s): D64.9 - Anemia, unspecified <ANGELA Sutherland - Last Filed: 05/28/20 11:09> Status: Acute <GURPREET SutherlandC - Last Filed: 05/28/20 11:09> Assessment and Plan: Possibly secondary to iron deficiency anemia versus blood loss versus acute kidney injury Occult blood positive on 05/17/2020 Continue iron supplement Patient's hemoglobin baseline appears to be 8.9. Today patient's hemoglobin 7.5, not much change Will continue to monitor patient's hemoglobin hematocrit and transfuse if needed 05/28/2020 anemia appears stable at 8.6/28.4 <ANGELA Sutherland - Last Filed: 05/28/20 11:09> (3) Acute kidney injury: Code(s): N17.9 - Acute kidney failure, unspecified <ANGELA Sutherland - Last Filed: 05/28/20 11:09> Status: Resolved <Keron Freedman RETA Ochoa-C - Last Filed: 05/28/20 11:09> Assessment and Plan: Patient baseline creatinine appears to be 0.90-1.00, on admission patient's creatinine at 1.70 currently 1.01 improving Will continue to monitor patient's renal function Renal dose medication Avoid nephrotoxic 05/28/2020 BUN creatinine 44/1.25, potassium was 5.3 decreased lisinopril from 20 to 10 mg, potassium was 5.3 this morning will discontinue daily potassium home medication and have patient follow-up with primary care provider within 1 week <Keron De La VegaKarey Ochoa APN-C - Last Filed: 05/28/20 11:09> (4) CHF (congestive heart failure): Code(s): I50.9 - Heart failure, unspecified <Keron Freedman RETA Ochoa-C - Last Filed: 05/28/20 11:09> Status: Acute <Keron De La VegaKarey Ochoa APN-C - Last Filed: 05/28/20 11:09> Assessment and Plan: Compensated Will closely monitor patient for fluid overload 05/28/2020 vital signs stable, lungs clear, scant edema bilateral lower extremities <Keron De La VegaKarey Ochoa APN-C - Last Filed: 05/28/20 11:09> (5) Weakness: Code(s): R53.1 - Weakness <Keron MohrRETA pa-C - Last Filed: 05/28/20 11:09> Status: Acute <Keron De La VegaKarey Ochoa APN-C - Last Filed: 05/28/20 11:09> Assessment and Plan: Exhibit tolerance during physical activity as evidenced by a normal fluctuation of vital signs during physical activity. ? Patient will be ability to perform required activities of daily living. ? Provide appropriate nutrition for healing and strength. ? Use appropriate to prevent falls. ? Continue physical therapy/occupational therapy. 05/28/2020 will discharge patient with home health with physical therapy and residential <Keron De La VegaKarey Ochoa APN-C - Last Filed: 05/28/20 11:09> (6) Frequent falls: Code(s): R29.6 - Repeated falls <Keron De La VegaKarey Ochoa APN-C - Last Filed: 05/28/20 11:09> Status: Acute <Keron Ochoa, [employer]-C - Last Filed: 05/28/20 11:09> Assessment and Plan: Se
[2020-05-28 08:00] VITALS: BP 104/46; PULSE 74; RESP 18; TEMP 36.2; O2SAT 95
[2020-05-28] MEDS: DOCUSATE SODIUM 100 MG CAPSULE PO (09:19)
[2020-05-28] MEDS: FERROUS SULFATE 324 MG TABLET PO (09:19)
[2020-05-28] MEDS: POTASSIUM CHLORIDE 20 MEQ PACKET (FOR LIQUID) PO (09:19)
== END 2020-05-28 16:30 | disposition home health service (06) | DRG 690 ==
PROVIDERS: Nurse Practitioner; Nurse Practitioner Family; Admitting Provider Emergency Medicine; PCP Internal Medicine; Visit Provider Emergency Medicine
DX: N39.0 Urinary tract infection, site not specified (principal); R78.81 Bacteremia; N17.9 Acute kidney failure, unspecified; I11.0 Hypertensive heart disease with heart failure; I50.9 Heart failure, unspecified; D64.9 Anemia, unspecified; R53.1 Weakness; B96.20 Unspecified Escherichia coli [E. coli] as the cause of diseases classified elsewhere; S81.812D Laceration without foreign body, left lower leg, subsequent encounter; R29.6 Repeated falls
CPT/HCPCS: 36415; 80048; 80053; 85027; 97110; 97161; 97165; 97530; 97535; A9270; J1650